=== PATIENT | female | born 1935 | race Caucasian/White ===

== ENCOUNTER 2022-06-04 08:46 | Emergency (ER) | payer MEDICARE, OTHER ==
[2022-06-04 09:09] VITALS: O2SAT 95
--- NOTE | 2022-06-04 09:30 | ERPHSYRPT ---
- History of Present Illness Source: patient Exam Limitations: no limitations Patient Subjective Stated Complaint: UTI symptoms Triage Nursing Assessment: Patient ambulated back to ED and transferred self to bed. Patient A+O X3. Patient's skin pink, warm and dry. Patient complains of UTI symptoms. Patient states she has been treated for UTI for 3 weeks, but continues to have pain when urinating. Patient complains of dysuria, urgency, frequency and hesitency. Physician History: 86 yo wf w dysuria [id number]. 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 She has frequency but denies urgency/hematuria/flank-CVA pain/N/V/D/melena/hematochezia/chest pain/cough. Pt became pain free after urinating. Timing/Duration: other (1 month) Quality: burning Onset Location: urethral Pain Radiation: none Severity of Pain-Max: severe Severity of Pain-Current: none Prior abdominal problems: none Sexual intercourse history: non-contributory Modifying Factors: Improves With: urinating (Makes worse) Associated Symptoms: dysuria, No abdominal pain, No fever, No chills, No diaphoresis, No nausea, No vomiting, No nocturia, No polyuria, No urinary frequency, No , No loss of bladder control, No lower back pain, No lumps, No mass, No swelling, No syncope Allergies/Adverse Reactions: No Known Drug Allergies Allergy (Unverified 06/04/22 09:03) Hx Influenza Vaccination/Date Given: No Hx Pneumococcal Vaccination/Date Given: No Travel Risk - International Travel Have you traveled outside of the country in past 3 weeks: No - Coronavirus Screening Are you exhibiting any of the following symptoms?: No - Vaccine Status Have you recieved a Covid-19 vaccination: Yes Certified Court/Medical Interpreter: Moderna - Vaccination Dates Date of 2cond Vaccination (if applicable): na - Review of Systems Constitutional: No Symptoms Eyes: No Symptoms Ears, Nose, & Throat: No Symptoms Respiratory: No Symptoms Cardiac: No Symptoms Abdominal/Gastrointestinal: No Symptoms Genitourinary Symptoms: No Symptoms, Dysuria Musculoskeletal: No Symptoms Skin: No Symptoms Neurological: No Symptoms Psychological: No Symptoms Endocrine: No Symptoms Hematologic/Lymphatic: No Symptoms Immunological/Allergic: No Symptoms - Past Medical History Neurological History: No Pertinent History Cardiac History: Arrhythmia, Hypertension Respiratory History: No Pertinent History Endocrine Medical History: No Pertinent History Musculoskeletal History: No Pertinent History Other Medical History: X-RAY SHOWED AN 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 - Social History Smoking Status: Never smoker Exposure to second hand smoke: No Drug Use: none Patient Lives Alone: Yes Significant Family History: no pertinent family hx - Nursing Vital Signs Nursing Vital Signs: Initial Vital Signs Temperature 97.1 F 06/04/22 09:04 Pulse Rate 66 06/04/22 09:04 Respiratory Rate 18 06/04/22 09:04 Blood Pressure 162/85 06/04/22 09:04 O2 Sat by Pulse Oximetry 95 06/04/22 09:04 Pain Scale Pain Intensity 8 - Physical Exam General Appearance: no apparent distress Eye Exam: PERRL/EOMI, eyes nml inspection Ears, Nose, Throat Exam: normal ENT inspection, TMs normal, pharynx normal, moist mucous membranes Neck Exam: normal inspection, non-tender, supple, full range of motion, No meningismus, No mass, No Brudzinski, No Kernig's Respiratory Exam: normal breath sounds, lungs clear, airway intact Cardiovascular Exam: regular rate/rhythm, normal heart sounds, normal peripheral pulses, capillary refill <2 sec, No murmur Gastrointestinal/Abdomen Exam: soft, normal bowel sounds, tenderness (Mild supra-pubic TTP) Back Exam: normal inspection, normal range of motion, No CVA tenderness, No vertebral tenderness Extremity Exam: normal inspection, normal range of motion Neurologic Exam: alert, oriented x 3, cooperative, director operating room II-XII nml as tested, normal mood/affect, nml cerebellar function, nml station & gait, sensation nml, No motor deficits, No sensory deficit Skin Exam: normal color, warm, dry Lymphatic Exam: No adenopathy SpO2 Interpretation: normal SpO2: 95 O2 Delivery: Room Air - Course Nursing assessment & vital signs reviewed: Yes Ordered Tests: Active Orders 24 hr Category Date Time Status CULTURE,URINE Stat Lab 06/04/22 09:04 Received UA W/RFX CULTURE Stat Lab 06/04/22 09:04 Completed Lab/Rad Data: Laboratory Results 06/04/22 Range/Units 09:04 Urinalys Dipstick Clnc MAIN LAB Urine Color YELLOW (YELLOW) Urine Appearance SLIGHTLY CLOUDY (CLEAR) Urine pH 6.0 (5-6) Ur Specific [place] 1.010 (1.005-1.025) POC Urine Protein Conf 30 (Negative) Urine Ketones NEGATIVE (NEGATIVE) Urine Nitrite NEGATIVE (NEGATIVE) Urine Bilirubin NEGATIVE (NEGATIVE) Urine Urobilinogen 0.2 (0-1) mg/dL Urine Leukocytes MODERATE (NEGATIVE) Urine WBC (Auto) >100 (0-5) /HPF Urine RBC (Auto) 6-10 (0-2) /HPF U Epithel Cells (Auto) NONE (FEW) /HPF Urine Bacteria (Auto) FEW (NEGATIVE) /HPF Urine RBC SMALL (0-5) Preston/ul Ur Culture Indicated? YES Urine Glucose NEGATIVE (NEGATIVE) mg/dL - Progress Progress Note: 06/04/22 10:07 Pt treated w Cipro 3-4 wks ago Counseled pt/family regarding: lab results, diagnosis, need for follow-up - Departure Departure Disposition: Home Clinical Impression: UTI (urinary tract infection) Condition: Stable Critical Care Time: No Referrals: DERIC CANDELARIA NP [Primary Care Provider] - Follow up/PCP as directed Instructions: Urinary Tract Infection, Adult (DC) Additional Instructions: Follow up with your family MD after antibiotics completed Start Bactrim twice a day for 5 days Fluids Return to ER for increasing pain or temperature greater than 100.5 Prescriptions: Smz/Tmp Ds Tablet [Bactrim Ds Tablet] 1 tab PO Q12H #10 tablet Phenazopyridine HCl 200 mg [Pyridium 200 mg] 200 mg PO TID PRN PRN #10 tablet PRN Reason: Pain
[2022-06-04 09:43] LABS: Appearance SLIGHTLY CLOUDY (CLEAR); Bacteria FEW /HPF (NEGATIVE); Bilirubin NEGATIVE (NEGATIVE); Dipstick done @ ? MAIN LAB; Glucose NEGATIVE (NEGATIVE); Ketones NEGATIVE (NEGATIVE); Nitrite NEGATIVE (NEGATIVE); Protein,Urine Dip 30 (Negative); RBC SMALL Ery/ul (0-5); Urobilinogen 0.2 mg/dL (0-1); WBC >100 /HPF (0-5)
[2022-06-04 09:44] LABS: Urine Cultured Indicated? YES
[2022-06-04 10:24] VITALS: BP 143/69; PULSE 69
== END 2022-06-04 10:21 | disposition home or self-care (01) ==
LOC: ED 08:46
DX: N39.0 Urinary tract infection, site not specified (principal); R30.0 Dysuria; R35.0 Frequency of micturition; I10 Essential (primary) hypertension
CPT/HCPCS: 81015; 87086; 99282

== ENCOUNTER 2023-09-23 09:51 | Emergency (ER) | payer MEDICARE, OTHER ==
--- NOTE | 2023-09-23 09:54 | ERPHSYRPT ---
- History of Present Illness Time Seen by Provider: 09/23/23 09:54 Source: patient, family Exam Limitations: no limitations Physician History: This is an 88-year-old white female patient of nurse practitioner Angelica who was sweeping off the snow on her sidewalk when she slipped on the ice that was underneath the snow. She injured her right ankle and there is pain in the lateral aspect of her right ankle. There is also some swelling in the level of the lower leg laterally. Patient is not on any anticoagulation therapy. She did not injure her head or neck or back. Patient was brought into the emergency department by the ambulance/paramedics. Patient has a history of arrhythmias, hypertension hyperlipidemia. Patient denies shortness of breath. Patient denies chest pain Occurred: just prior to arrival Reason for Fall: slipped (On ice) Injuries/Pain Location: lower extremity (Right ankle and right lower leg below the knee) Loss of Consciousness: no loss of consciousness Quality: aching Severity of Pain-Max: mild (To moderate) Severity of Pain-Current: mild (To moderate) Modifying Factors: Improves With: movement Associated Symptoms (Fall): extremity injury (. Right lower extremity below knee and right ankle), trouble walking (Her right ankle hurts to walk on it) Allergies/Adverse Reactions: No Known Drug Allergies Allergy (Unverified 06/04/22 09:03) Home Medications: Atorvastatin Calcium [Lipitor] 10 mg PO QHS 09/23/23 [History] Carvedilol 3.125 mg [Coreg 3.125 MG] 3.125 mg PO BID 09/23/23 [History] Enalapril Maleate 20 mg PO QAM 09/23/23 [History] Hydrochlorothiazide 25 mg [hydroDIURIL 25 MG] 25 mg PO DAILY 09/23/23 [History] Multivit-Min/Iron/Folic/Lutein [Centrum Silver Women Tablet] 1 each PO 09/23/23 [History] Vit A/Vit C/Vit E/Zinc/Copper [Preservision Areds Tablet] 09/23/23 [History] Vitamin B Complex [B Complex] 09/23/23 [History] Hx Influenza Vaccination/Date Given: No Hx Pneumococcal Vaccination/Date Given: No Travel Risk - International Travel Have you traveled outside of the country in past 3 weeks: No - Coronavirus Screening Are you exhibiting any of the following symptoms?: No Close contact with a COVID-19 positive Pt in past 14-21 Days: No - Vaccine Status Have you recieved a Covid-19 vaccination: Yes Lens Edger: Moderna - Vaccination Dates Date of 2cond Vaccination (if applicable): na - Review of Systems Constitutional: No Symptoms Eyes: No Symptoms Ears, Nose, & Throat: No Symptoms Respiratory: No Symptoms Cardiac: No Symptoms Abdominal/Gastrointestinal: No Symptoms Genitourinary Symptoms: No Symptoms Musculoskeletal: Fall, Injury (Right ankle and right lower extremity below the knee) Skin: No Symptoms Neurological: No Symptoms Psychological: No Symptoms Endocrine: No Symptoms Hematologic/Lymphatic: No Symptoms Immunological/Allergic: No Symptoms All Other Systems: Reviewed and Negative - Past Medical History Neurological History: No Pertinent History Cardiac History: Arrhythmia, Hypertension Respiratory History: No Pertinent History Endocrine Medical History: No Pertinent History Musculoskeletal History: No Pertinent History Other Medical History: X-RAY SHOWED AN 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 - Social History Smoking Status: Never smoker Exposure to second hand smoke: No Drug Use: none Patient Lives Alone: Yes Significant Family History: no pertinent family hx - Nursing Vital Signs Nursing Vital Signs: Initial Vital Signs Pulse Rate 50 L 09/23/23 09:53 Respiratory Rate 16 09/23/23 09:53 Blood Pressure 170/101 09/23/23 09:53 O2 Sat by Pulse Oximetry 98 09/23/23 09:53 Pain Scale Pain Intensity 5 - Jeniffer Coma Score Best Eye Response ([place]): (4) open spontaneously Best Verbal Response ([place]): (5) oriented Best Motor Response ([place]): (6) obeys commands [place] Total: 15 - Physical Exam General Appearance: no apparent distress, alert, anxiety Head Injury: no evidence of injury Eye Exam: PERRL/EOMI, eyes nml inspection ENT Exam: airway nml, nml ext.inspection Neck Exam: supple, trachea midline, full range of motion, normal alignment, normal inspection Respiratory/Chest Exam: normal breath sounds, No chest tenderness, No respiratory distress, No ecchymosis, No crepitus Gastrointestinal Exam: No tenderness Rectal Exam: not done Back Exam: normal inspection, normal range of motion, No CVA tenderness, No vertebral tenderness Extremity Exam: evidence of injury (Swelling and tenderness and swelling lateral aspect of right ankle and lateral aspect of right lower leg below the knee), tenderness Neurologic Exam: alert, oriented x 3, cooperative, motel operator II-XII nml as tested, normal mood/affect, sensation nml Skin Exam: normal color, warm, dry SpO2 Interpretation: normal O2 Delivery: Room Air - Course Nursing assessment & vital signs reviewed: Yes Ordered Tests: Active Orders 24 hr Category Date Time Status Splint STAT Care 09/23/23 10:26 Active ANKLE (3 VIEWS) Stat Exams 09/23/23 10:05 Taken LOWER LEG Stat Exams 09/23/23 10:09 Taken - Progress Progress: improved, pain not gone completely, re-examined Progress Note: 09/23/23 10:13 This patient's medical issue is 1 of low complexity. Level complexity in the workup performed is based on review the patient's past medical history, review the patient's medication list, review of the patient's drug allergy list, history of present illness and physical findings on examination. This patient's workup includes x-ray of the patient's right ankle and x-ray of the patient's right lower leg below the knee. 09/23/23 10:27 I interpreted the x-ray of the right lower leg. There is distal, minimally displaced fibular fracture. Remainder of the x-ray shows no other acute fracture or dislocation. I interpreted the x-ray of the right ankle. There is minimally displaced fibular fracture. Remainder of the x-ray shows no other acute fracture or dislocation. Counseled pt/family regarding: diagnosis, need for follow-up, rad results Medical Desision Making - Diagnostic Testing Diagnostic test were ordered, analyzed, and reviewed by me: Yes Radiological Interpretation: Interpreted by me - Risk of complications The pt has a mod risk of morbidity or mortality based on: Need for prescription drug management - Departure Departure Disposition: Home Clinical Impression: Fracture of distal end of fibula Condition: Stable Critical Care Time: No Referrals: DERIC CANDELARIA NP [Primary Care Provider] - Follow up/PCP as directed Additional Instructions: Minimize weightbearing with splint in place using a walker. Take your medicat ion as prescribed. Follow-up in the [facility] orthopedic clinic or floor sander Dr. Torres's office at [facility] for further evaluation management. The [facility] orthopedic clinic is open next week Tuesday through Tuesday 8 AM to 10 AM. It is a walk-in clinic and you do not need to have an appointment. You can call Dr. Torres's office at [facility] and make a follow-up appointment with them for early next week for further evaluation and management. Prescriptions: Oxycodone HCl/Acetaminophen [Percocet 5-325 mg Tablet] 1 each PO Q8H PRN PRN #9 tablet MDD 3 PRN Reason: Moderate To Severe Pain
[2023-09-23 10:02] VITALS: PULSE 50; RESP 16
[2023-09-23 10:29] VITALS: BP 166/69; O2SAT 94
--- NOTE | 2023-09-23 10:56 | XRAY ---
Indication: Pain following fall. Comparison: None 2 view right lower leg demonstrates osteopenia and faint minimal vascular calcifications. Nondisplaced oblique fracture distal fibula with adjacent soft tissue swelling. No other bony, articular, or soft tissue abnormalities.
--- NOTE | 2023-09-23 10:56 | XRAY ---
Indication: Pain following fall. Comparison: None 3 view right ankle demonstrates osteopenia and acute nondisplaced oblique fracture distal fibula with adjacent soft tissue swelling. Incidental mild scattered vascular calcifications, small heel spurs, and tiny posterior talus accessory ossicles. No other bony, articular, or soft tissue abnormalities.
== END 2023-09-23 11:30 | disposition home or self-care (01) ==
LOC: ED 09:51
DX: S82.831A Other fracture of upper and lower end of right fibula, initial encounter for closed fracture (principal); W00.0XXA Fall on same level due to ice and snow, initial encounter; Y93.H9 Activity, other involving exterior property and land maintenance, building and construction; Y92.007 Garden or yard of unspecified non-institutional (private) residence as the place of occurrence of the external cause; I10 Essential (primary) hypertension; E78.5 Hyperlipidemia, unspecified; Z79.891 Long term (current) use of opiate analgesic; Z79.899 Other long term (current) drug therapy
CPT/HCPCS: 29505; 73590; 73610; 99282

== ENCOUNTER 2024-04-17 14:03 | Inpatient (IN) | payer MEDICARE, OTHER ==
--- NOTE | 2024-04-17 15:31 | XRAY ---
Indication: Left hip pain 1 month. No known injury. Axial and coronal MRI both hips performed using T1, T2, and STIR sequences. Additional T2 fat sat sagittal images obtained through left hip. Comparison: None Both hip articulation intact. Left femur head/neck demonstrates nondisplaced hairline stress fracture with patchy bone edema signal and small effusion. Superior left acetabulum also demonstrates small focus bone bruising/edema signal presumed related. No bony remodeling or evidence for avascular necrosis. No focal solid/cystic soft tissue mass. Visualized pelvic contents are unremarkable. Impression: Stress fracture left femur head/neck with small effusion. Additional associated superior acetabulum bone bruising/edema. Comment: Immediate report will be given to the ordering clinician.
--- NOTE | 2024-04-17 16:30 | PCM.HP ---
History of Present Illness - Chief Complaint Chief Complaint: Stress fracture left femur head/neck with small effusion. Date: 04/17/24 History of Present Illness: is a 88 year old female with a PMHX of HLD and HTN patient of Dr. Lei (Ortho) direct admit for evaluation and treatment of MRI confirmed stress fracture left femur head/neck with small effusion. Patient states that she has been experiencing left groin and hip pain for the past month. Pain is aching in characteristic and only occurs with movement. She rates that pain 10/10 on a numerical pain scale when it occurs. Movement is the only aggravating factor. Pain is relieved with sitting or laying. No previous trauma. Plan per Ortho is to obtain CT and plan for surgical intervention either Tuesday/. Denies fever,cough, sob, cp, abdominal pain, ALMANZA, dizziness, N/V/D. - Review of Systems Constitutional: No Symptoms Eyes: No Symptoms Ears, Nose, & Throat: No Symptoms Respiratory: No Symptoms Cardiac: No Symptoms Abdominal/Gastrointestinal: No Symptoms Genitourinary Symptoms: No Symptoms Musculoskeletal: Joint Pain (Left groin/hip) Skin: No Symptoms Neurological: No Symptoms Psychological: No Symptoms Endocrine: No Symptoms Hematologic/Lymphatic: No Symptoms Immunological/Allergic: No Symptoms Medications & Allergies Home Medications: Home Medication List Phenazopyridine HCl 200 mg [Pyridium 200 mg] 200 mg PO TID PRN PRN #10 tablet 06/04/22 [Rx] Atorvastatin Calcium [Lipitor] 10 mg PO QHS 09/23/23 [History Confirmed 09/23/23] Carvedilol 3.125 mg [Coreg 3.125 MG] 3.125 mg PO BID 09/23/23 [History Confirmed 09/23/23] Enalapril Maleate 20 mg PO QAM 09/23/23 [History Confirmed 09/23/23] Hydrochlorothiazide 25 mg [hydroDIURIL 25 MG] 25 mg PO DAILY 09/23/23 [History Confirmed 09/23/23] Multivit-Min/Iron/Folic/Lutein [Centrum Silver Women Tablet] 1 each PO 09/23/23 [History] Oxycodone HCl/Acetaminophen [Percocet 5-325 mg Tablet] 1 each PO Q8H PRN PRN #9 tablet MDD 3 09/23/23 [Rx] Vit A/Vit C/Vit E/Zinc/Copper [Preservision Areds Tablet] 09/23/23 [History] Vitamin B Complex [B Complex] 09/23/23 [History] Allergies/Adverse Reactions: Allergies Allergy/AdvReac Type Severity Reaction Status Date / Time No Known Drug Allergies Allergy Unverified 06/04/22 09:03 - Past Medical History Neurological History: Peripheral Neuropathy Cardiac History: Hypertension Respiratory History: No Pertinent History Endocrine Medical History: No Pertinent History Musculoskelatal History: Osteoarthritis History: Other (melanoma) Comment: X-RAY SHOWED AN 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 Significant Family History: no pertinent family hx - Social History Smoking Status: Former smoker Exposure to second hand smoke: No Alcohol: None Drug Use: none - Physical Exam General Appearance: no apparent distress Neurologic Exam: alert, oriented x 3, cooperative Eye Exam: PERRL/EOMI Ears, Nose, Throat Exam: normal ENT inspection Neck Exam: normal inspection Respiratory Exam: normal breath sounds, lungs clear Cardiovascular Exam: regular rate/rhythm, normal heart sounds Pelvic Exam: not done Rectal Exam: deferred Back Exam: normal inspection Extremity Exam: limited range of motion (right hip) Results - Radiology Impressions Radiology Exams & Impressions: Radiology Procedures Category Date Time Status MRI LOW EXT JOINT W/O CONTRAST [MRI] Routine Exams 04/17/24 14:12 Completed Assessment/Plan (1) Stress fracture of femur Current Visit: Yes Status: Acute Assessment & Plan: MRI reviewed: Impression: Stress fracture left femur head/neck with small effusion. Additional associated superior acetabulum bone bruising/edema. -Discussed case with Dr. Lei, plan for additional imaging to determine surgical treatment plan- Most likely Tuesday/ pending results -CMP, CBC, PT, PTT -Pain control - [place] Code(s): M84.353A - STRESS FRACTURE, UNSPECIFIED FEMUR, INIT ENCNTR FOR FRACTURE (2) HTN (hypertension) Current Visit: Yes Status: Acute Assessment & Plan: -Monitor - continue home meds Code(s): I10 - ESSENTIAL (PRIMARY) HYPERTENSION (3) HLD (hyperlipidemia) Current Visit: Yes Status: Acute Assessment & Plan: -continue statin VTE: bilateral SCD - hold anticoag for sx Dispo: pending surgical eval Code(s): E78.5 - HYPERLIPIDEMIA, UNSPECIFIED Telemedicine Encounter - Telemedicine Encounter Telemedicine Encounter: "The entirety of this encounter was performed via Telemedicine" This visit was performed using real-time audio and video connection between my location and thepatients locationwith the assistance of a surrogateat the patients location. Written or verbal consent was obtained from the patient/guardian to perform this visit [facility] technology. Any patient questions regarding the telemedicine interaction were answered.
[2024-04-17] MEDS ORDERED: TYLENOL 325 MG PO PRN (17:05)
[2024-04-17 17:30] LABS: Absolute Neutrophil Ct (ANC) 3.95 x10^3/uL (1.56-6.13); BASOPHIL % 0.5 % (0.1-1.2); Basophil (Absolute #) 0.04 x10^3/uL (0.01-0.08); Eosinophil % 2.8 % (0.7-5.8); Eosinophil (Absolute #) 0.21 x10^3/uL (0.04-0.36); Hematocrit 39.4 % (34.1-44.9); Hemoglobin 13.4 g/dL (11.2-15.7); IMMATURE GRAN # 0.02 x10^3u/L (0.001-0.031); IMMATURE GRAN % 0.3 % (0.001-0.429); Lymphocyte (Absolute #) 2.51 x10^3/uL (1.18-3.74); Mean Platelet Volume 9.2 fL (9.4-12.3); Monocyte (Absolute #) 0.66 x10^3/uL (0.24-0.86); Monocytes % 8.9 % (4.7-12.5); Neutrophil % 53.5 % (34.0-71.1); Platelet Count 212 x10^3/uL (182-369); Red Blood Count 4.19 x10^6/uL (3.93-5.22); Red Cell Distribution Width 13.1 % (11.7-14.4); White Blood Count 7.4 x10^3/uL (3.98-10.04)
[2024-04-17 17:43] LABS: ALBUMIN 4.4 g/dL (3.5-5.0); ANION GAP 11.5 MEQ/L (5-15); BILIRUBIN,TOTAL 0.9 mg/dL (0.2-1.3); Calcium 9.5 mg/dL (8.4-10.2); Creatinine 1 0.7 mg/dL (0.52-1.04); EST GLOMERULAR FILTRATION RATE 83.7 ML/MIN; Potassium 3.5 mmol/L (3.5-5.1); Total Protein 7.1 g/dL (6.3-8.2)
[2024-04-17 17:45] LABS: INR 0.99 (0.8-3.0); PROTIME 10.8 SECONDS (9.4-12.5); PTT 28.2 SECONDS (25.1-36.5)
[2024-04-17] MEDS ORDERED: DICLOFENAC SODIUM TP ONE (20:39)
[2024-04-17] MEDS: DICLOFENAC SODIUM TP PRN (20:40)
[2024-04-17] MEDS: ZOLOFT 50 MG TABLET PO SCH (21:34)
[2024-04-17] MEDS: Zocor 10MG PO SCH (21:35)
[2024-04-17] MEDS: Vasotec 10 MG PO SCH (21:41)
[2024-04-17] MEDS ORDERED: NON-FORMULARY ITEM (Atorvastatin Calcium 10 MG Tablet) PO SCH (22:00)
[2024-04-18] MEDS: Coreg 3.125 MG PO SCH (00:22)
[2024-04-18 04:54] LABS: Absolute Neutrophil Ct (ANC) 2.82 x10^3/uL (1.56-6.13); BASOPHIL % 0.5 % (0.1-1.2); Basophil (Absolute #) 0.03 x10^3/uL (0.01-0.08); Eosinophil % 3.3 % (0.7-5.8); Hemoglobin 12.4 g/dL (11.2-15.7); IMMATURE GRAN # 0.02 x10^3u/L (0.001-0.031); IMMATURE GRAN % 0.3 % (0.001-0.429); Lymphocyte (Absolute #) 2.33 x10^3/uL (1.18-3.74); Lymphocytes % 38.1 % (19.3-51.7); Mean Cell Volume 94.1 fL (79.4-94.8); Mean Corpuscular Hemoglobin 31.6 pg (25.6-32.2); Mean Corpuscular Hgb Concent. 33.5 g/dL (32.2-35.5); Mean Platelet Volume 9.8 fL (9.4-12.3); Monocyte (Absolute #) 0.72 x10^3/uL (0.24-0.86); Monocytes % 11.8 % (4.7-12.5); Platelet Count 210 x10^3/uL (182-369); Red Blood Count 3.93 x10^6/uL (3.93-5.22); White Blood Count 6.1 x10^3/uL (3.98-10.04)
[2024-04-18 05:06] LABS: ALBUMIN 3.9 g/dL (3.5-5.0); ANION GAP 10.4 MEQ/L (5-15); BILIRUBIN,TOTAL 0.8 mg/dL (0.2-1.3); Creatinine 1 0.68 mg/dL (0.52-1.04); EST GLOMERULAR FILTRATION RATE 84.2 ML/MIN; Potassium 3.4 mmol/L (3.5-5.1); Total Protein 6.4 g/dL (6.3-8.2)
--- NOTE | 2024-04-18 05:25 | PCM.NOTE ---
Date and Time: 04/18/24523 Subjective Assessment: is a 88 year old female with a PMHX of HLD and HTN patient of Dr. Lei (Ortho) direct admit for evaluation and treatment of MRI confirmed stress fracture left femur head/neck with small effusion. Patient states that she has been experiencing left groin and hip pain for the past month. Pain is aching in characteristic and only occurs with movement. She rates that pain 10/10 on a numerical pain scale when it occurs. Movement is the only aggravating factor. Pain is relieved with sitting or laying. No previous trauma. Plan per Ortho is to obtain CT and plan for surgical intervention either Tuesday/. Denies fever,cough, sob, cp, abdominal pain, ALMANZA, dizziness, N/V/D. 04/18/24: Met with patient and family at bedside. Reviewed imaging results with addendum. Plans for total left hip replacement today per Ortho. Pain is controlled with current management. Will order CXR for pre-surgical evaluation. Denies fever,cough, sob, cp, abdominal pain, ALMANZA, dizziness, N/V/D. - Review of Systems Constitutional: No Symptoms Eyes: No Symptoms Ears, Nose, & Throat: No Symptoms Respiratory: No Symptoms Cardiac: No Symptoms Abdominal/Gastrointestinal: No Symptoms Genitourinary Symptoms: No Symptoms Musculoskeletal: Joint Pain (left hip/groin) Skin: No Symptoms Neurological: No Symptoms Psychological: No Symptoms Endocrine: No Symptoms Hematologic/Lymphatic: No Symptoms Immunological/Allergic: No Symptoms Objective Exam General Appearance: no apparent distress Neurologic Exam: alert, oriented x 3, cooperative Skin Exam: normal color Eye Exam: PERRL Ears, Nose, Throat Exam: normal ENT inspection Neck Exam: normal inspection Respiratory Exam: normal breath sounds, lungs clear Cardiovascular Exam: regular rate/rhythm, normal heart sounds Gastrointestinal/Abdomen Exam: soft, normal bowel sounds Extremity Exam: limited range of motion (LLE/hip) Back Exam: normal inspection Pelvic Exam: deferred Rectal Exam: deferred Objective Data Vital Signs: Vital Signs - 24 hr Temp Pulse Resp BP BP Pulse Ox 04/18/24 04:00 97.8 F 51 L 18 179/76 95 04/17/24 23:51 97.5 F 54 L 16 144/67 94 L 04/17/24 20:08 97.8 F 54 L 17 160/72 92 L 04/17/24 17:39 97.1 F 51 L 19 168/79 95 04/17/24 16:30 97.1 F 51 L 19 95 Pain Assessment - Last Documented Pain Intensity 0 Intake and Output: Intake & Output 04/15/24 04/16/24 04/17/24 04/18/24 11:59 11:59 11:59 11:59 Intake Total 720 Output Total 1000 Balance -280 Weight 75.5 kg Lab Results: Lab Results-Last 24 Hours 04/17/24 04/17/24 04/17/24 Range/Units 17:25 17:25 17:25 WBC 7.4 (3.98-10.04) x10^3/uL RBC 4.19 (3.93-5.22) x10^6/uL Hgb 13.4 (11.2-15.7) g/dL Hct 39.4 (34.1-44.9) % MCV 94.0 (79.4-94.8) fL MCH 32.0 (25.6-32.2) pg MCHC 34.0 (32.2-35.5) g/dL RDW 13.1 (11.7-14.4) % Plt Count 212 (182-369) x10^3/uL MPV 9.2 L (9.4-12.3) fL Gran % 53.5 (34.0-71.1) % Immature Gran % (Auto) 0.3 (0.001-0.429) % Nucleat RBC Rel Count 0.0 (0.00-0.2) % Eos # (Auto) 0.21 (0.04-0.36) x10^3/uL Immature Gran # (Auto) 0.02 (0.001-0.031) x10^3u/L Absolute Lymphs (auto) 2.51 (1.18-3.74) x10^3/uL Absolute Monos (auto) 0.66 (0.24-0.86) x10^3/uL Absolute Nucleated RBC 0.00 (0.00-0.012) x10^3u/L Lymphocytes % 34.0 (19.3-51.7) % Monocytes % 8.9 (4.7-12.5) % Eosinophils % 2.8 (0.7-5.8) % Basophils % 0.5 (0.1-1.2) % Absolute Granulocytes 3.95 (1.56-6.13) x10^3/uL Basophils # 0.04 (0.01-0.08) x10^3/uL PT 10.8 (9.4-12.5) SECONDS INR 0.99 (0.8-3.0) APTT 28.2 (25.1-36.5) SECONDS Sodium 138 (135-145) mmol/L Potassium 3.5 (3.5-5.1) mmol/L Chloride 102 (98-107) mmol/L Carbon Dioxide 29 (22-30) mmol/L Anion Gap 11.5 (5-15) MEQ/L BUN 21 H (7-17) mg/dL Creatinine 0.70 (0.52-1.04) mg/dL Estimated GFR 83.7 ML/MIN Glucose 118 H (74-106) mg/dL Calcium 9.5 (8.4-10.2) mg/dL Total Bilirubin 0.90 (0.2-1.3) mg/dL AST 39 H (14-36) U/L ALT 37 H (0-35) U/L Alkaline Phosphatase 87 (38-126) U/L Serum Total Protein 7.1 (6.3-8.2) g/dL Albumin 4.4 (3.5-5.0) g/dL 04/18/ Range/Units 04:05 WBC 6.1 (3.98-10.04) x10^3/uL RBC 3.93 (3.93-5.22) x10^6/uL Hgb 12.4 (11.2-15.7) g/dL Hct 37.0 (34.1-44.9) % MCV 94.1 (79.4-94.8) fL MCH 31.6 (25.6-32.2) pg MCHC 33.5 (32.2-35.5) g/dL RDW 13.0 (11.7-14.4) % Plt Count 210 (182-369) x10^3/uL MPV 9.8 (9.4-12.3) fL Gran % 46.0 (34.0-71.1) % Immature Gran % (Auto) 0.3 (0.001-0.429) % Nucleat RBC Rel Count 0.0 (0.00-0.2) % Eos # (Auto) 0.20 (0.04-0.36) x10^3/uL Immature Gran # (Auto) 0.02 (0.001-0.031) x10^3u/L Absolute Lymphs (auto) 2.33 (1.18-3.74) x10^3/uL Absolute Monos (auto) 0.72 (0.24-0.86) x10^3/uL Absolute Nucleated RBC 0.00 (0.00-0.012) x10^3u/L Lymphocytes % 38.1 (19.3-51.7) % Monocytes % 11.8 (4.7-12.5) % Eosinophils % 3.3 (0.7-5.8) % Basophils % 0.5 (0.1-1.2) % Absolute Granulocytes 2.82 (1.56-6.13) x10^3/uL Basophils # 0.03 (0.01-0.08) x10^3/uL PT (9.4-12.5) SECONDS INR (0.8-3.0) APTT (25.1-36.5) SECONDS Sodium (135-145) mmol/L Potassium (3.5-5.1) mmol/L Chloride (98-107) mmol/L Carbon Dioxide (22-30) mmol/L Anion Gap (5-15) MEQ/L BUN (7-17) mg/dL Creatinine (0.52-1.04) mg/dL Estimated GFR ML/MIN Glucose (74-106) mg/dL Calcium (8.4-10.2) mg/dL Total Bilirubin (0.2-1.3) mg/dL AST (14-36) U/L ALT (0-35) U/L Alkaline Phosphatase (38-126) U/L Serum Total Protein (6.3-8.2) g/dL Albumin (3.5-5.0) g/dL Radiology Exams: Radiology Procedures Category Date Time Status LOWER EXTREMITY WO CONTRAST [CT] Urgent Exams 04/17/24 17:25 Taken MRI LOW EXT JOINT W/O CONTRAST [MRI] Routine Exams 04/17/24 14:12 Completed Assessment/Plan (1) Stress fracture of femur Current Visit: Yes Status: Acute Assessment & Plan: MRI reviewed: Impression: Stress fracture left femur head/neck with small effusion. Additional associated superior acetabulum bone bruising/edema. -Discussed case with Dr. Lei, plan for additional imaging to determine surgical treatment plan- Most likely Tuesday/ pending results -CMP, CBC, PT, PTT -Pain control - [place] 04/18/24: -Ortho following plan for left total hip replacement -Continue pain control -CXR - pre surgery Code(s): M84.353A - STRESS FRACTURE, UNSPECIFIED FEMUR, INIT ENCNTR FOR FRACTURE (2) HTN (hypertension) Current Visit: Yes Status: Acute Assessment & Plan: -Monitor - continue home meds Code(s): I10 - ESSENTIAL (PRIMARY) HYPERTENSION (3) HLD (hyperlipidemia) Current Visit: Yes Status: Acute Assessment & Plan: -continue statin VTE: bilateral SCD - hold anticoag for sx Dispo: pending surgical eval Code(s): M84.353A - STRESS FRACTURE, UNSPECIFIED FEMUR, INIT ENCNTR FOR FRACTURE (2) HTN (hypertension) Current Visit: Yes Status: Acute Code(s): I10 - ESSENTIAL (PRIMARY) HYPERTENSION (3) HLD (hyperlipidemia) Current Visit: Yes Status: Acute Code(s): E78.5 - HYPERLIPIDEMIA, UNSPECIFIED
--- NOTE | 2024-04-18 08:40 | XRAY ---
Indication: Closed fracture of hip. Multiple contiguous axial images obtained through the left hip. 2-D sagittal and coronal reformatted images obtained. Additional 3-D reformatted images obtained using separate workstation. Comparison: Same day MRI left hip exam. Osseous structures demineralized consistent with patient's age. Left hip articular joint intact with mild weightbearing degenerative joint space narrowing, bony spurring, and small effusion. No acute fracture, suspicious bony lesions, or osseous destructive process. Specifically no CT features corresponding to the MRI stress fracture I reported. Incidental mild degenerative changes left SI joint. Visualized noncontrasted soft tissues demonstrates mild scattered arteriosclerotic calcifications. No focal solid/cystic soft tissue mass or pathologic lymphadenopathy. Impression: Osteopenia, mild left hip/left SI joint degenerative changes, and arteriosclerotic disease. Remaining CT left hip without contrast exam is negative. Comment: Study was reviewed with the ordering clinician at 0830 hrs on April 18, 2024.
[2024-04-18] MEDS: Ocuvite Tablet PO SCH (09:46)
[2024-04-18] MEDS: VITA-BEE WITH C PO SCH (09:46)
[2024-04-18] MEDS: Klor Con PO SCH (09:46)
[2024-04-18] MEDS: THERAGRAN MULTIVITAMIN PO SCH (09:47)
[2024-04-18] MEDS: hydroDIURIL 25 MG PO SCH (09:53)
[2024-04-18] MEDS ORDERED: NON-FORMULARY ITEM (Vit A/Vit C/Vit E/Zinc/Copper [Preservision Areds Tablet] 1 EACH Table PO SCH (10:00)
[2024-04-18] MEDS ORDERED: Klor Con PO SCH (10:00)
[2024-04-18] MEDS ORDERED: VITAMIN B COMPLEX PO SCH (10:00)
[2024-04-18] MEDS ORDERED: NON-FORMULARY ITEM (Multivit-Min/Iron/Folic/Lutein [Centrum Silver Women Tablet] 1 EACH Ta PO SCH (10:00)
[2024-04-18] MEDS ORDERED: Lactated Ringers 1,000 ML IV ONE ×2 (10:30→13:00)
--- NOTE | 2024-04-18 10:32 | XRAY ---
Indication: Preop exam. Comparison: July 20, 2021 Portable chest again demonstrates minimal left lung base discoid atelectasis/scarring. No focal infiltrate, consolidation, or large effusion. Heart not enlarged again with mild tortuous descending aorta. Bony thorax intact again with osteopenia, degenerative changes, and mild levoscoliosis. New finding old left 7-9 rib fractures. Impression: Nonacute chest with chronic features.
[2024-04-18] MEDS: Lactated Ringers 1,000 ML IV SCH (11:02)
[2024-04-18] MEDS ORDERED: Marcaine 0.5%/Epinephrine 10 ML ONE (12:25)
[2024-04-18] MEDS ORDERED: SUBLIMAZE 100 MCG/2 ML ONE ×3 (12:26→16:28)
[2024-04-18] MEDS ORDERED: EXPAREL 133 MG/10 ML VIAL IJ ONE (13:36)
[2024-04-18] MEDS ORDERED: MARCAINE 0.5%-EPI 1:200,000 VL IJ ONE (13:36)
[2024-04-18] MEDS ORDERED: Sodium Chloride 0.9% 100 ML ONE (13:37)
[2024-04-18] MEDS ORDERED: Versed 2 MG/2 ML Injection ONE (13:44)
[2024-04-18] MEDS ORDERED: Amidate 20 MG/10 ML IV ONE (13:44)
[2024-04-18] MEDS ORDERED: ROCURONIUM BROMIDE IV ONE (13:44)
[2024-04-18] MEDS ORDERED: CEFAZOLIN 2 GM/100 ML NaCl 2 GM/100 ML IVPB IV ONE (14:00)
[2024-04-18] MEDS ORDERED: TRANEXAMIC ACID 1000 MG/10 ML ONE (14:01)
[2024-04-18] MEDS ORDERED: ROBINUL ONE (14:52)
--- NOTE | 2024-04-18 15:18 | XRAY ---
Indication: Follow-up left hip total replacement. Comparison: March 23, 2024 Single AP pelvis demonstrates new left hip arthroplasty with left femoral prosthesis in situ, overlying postsurgical soft tissue emphysema, and external hemostats/clips. Again osteopenia and mild scattered vascular calcifications. No other bony, articular, or soft tissue abnormalities.
[2024-04-18] MEDS ORDERED: Zofran 4 MG/2 ML VIAL ONE (15:40)
[2024-04-18] MEDS ORDERED: BRIDION 200MG/2ML IV ONE (15:44)
--- NOTE | 2024-04-18 16:46 | XRAY ---
Indication: Postop left total hip replacement. Comparison: Taken earlier today. AP pelvis and crosstable lateral left hip demonstrates new intact left hip bipolar prosthesis with trochanteric wire. Again postsurgical soft tissue emphysema and diffuse osteopenia. No other bony, articular, or soft tissue abnormalities.
[2024-04-18] MEDS: NORCO 5/325 MG PO PRN (17:55)
[2024-04-18] MEDS: POTASSIUM CHLORIDE IV ONE (18:43)
[2024-04-18] MEDS: SODIUM CHLORIDE 0.9% IV ONE (18:43)
[2024-04-18] MEDS: Zofran 4 MG/2 ML VIAL IV PRN (22:59)
--- NOTE | 2024-04-19 05:13 | PCM.NOTE ---
Date and Time: 04/19/24511 Subjective Assessment: is a 88 year old female with a PMHX of HLD and HTN patient of Dr. Lei (Ortho) direct admit for evaluation and treatment of MRI confirmed stress fracture left femur head/neck with small effusion. Patient states that she has been experiencing left groin and hip pain for the past month. Pain is aching in characteristic and only occurs with movement. She rates that pain 10/10 on a numerical pain scale when it occurs. Movement is the only aggravating factor. Pain is relieved with sitting or laying. No previous trauma. Plan per Ortho is to obtain CT and plan for surgical intervention either Tuesday/. Denies fever,cough, sob, cp, abdominal pain, ALMANZA, dizziness, N/V/D. 04/18/24: Met with patient and family at bedside. Reviewed imaging results with addendum. Plans for total left hip replacement today per Ortho. Pain is controlled with current management. Will order CXR for pre-surgical evaluation. Denies fever,cough, sob, cp, abdominal pain, ALMANZA, dizziness, N/V/D. 04/19/24: Met with patient at bedside. PODS#1. Endorses 7/10 pain to the left hip. [place] not relieving pain - will add dilaudid. She reports vomiting last night and nausea this morning. CM working on placement/swing. Denies fever,cough, sob, cp, abdominal pain, ALMANZA, dizziness, or diarrhea. - Review of Systems Constitutional: Fatigue, Weakness Eyes: No Symptoms Ears, Nose, & Throat: No Symptoms Respiratory: No Symptoms Cardiac: No Symptoms Abdominal/Gastrointestinal: Nausea, Vomiting Genitourinary Symptoms: No Symptoms Musculoskeletal: Joint Pain (left hip) Skin: Other (surgical wound to left hip covered with dressing) Neurological: No Symptoms Psychological: No Symptoms Endocrine: No Symptoms Hematologic/Lymphatic: No Symptoms Immunological/Allergic: No Symptoms Objective Exam General Appearance: no apparent distress Neurologic Exam: alert, oriented x 3, cooperative Skin Exam: normal color, other (surgical wound to left hip covered with dressing) Eye Exam: PERRL Ears, Nose, Throat Exam: normal ENT inspection Neck Exam: normal inspection Respiratory Exam: normal breath sounds, lungs clear Cardiovascular Exam: regular rate/rhythm, normal heart sounds Gastrointestinal/Abdomen Exam: soft, normal bowel sounds Extremity Exam: normal inspection Back Exam: normal inspection Pelvic Exam: deferred Rectal Exam: deferred Objective Data Vital Signs: Vital Signs - 24 hr Temp Pulse Resp BP BP Pulse Ox 04/19/24 03:59 98.9 F 68 17 136/65 160/72 96 04/19/24 00:09 97.7 F 68 19 159/71 95 04/18/24 21:10 97.6 F 57 L 15 148/65 93 L 04/18/24 20:19 97.0 F 55 L 17 131/60 93 L 04/18/24 19:10 97.0 F 52 L 18 137/63 93 L 04/18/24 18:40 96.8 F 51 L 17 145/63 94 L 04/18/24 18:27 59 L 154/82 04/18/24 17:55 59 L 148/68 04/18/24 17:40 96.5 F 53 L 16 148/67 97 04/18/24 12:28 96.4 F 54 L 16 171/72 160/72 93 L 04/18/24 11:59 96.4 F 54 L 16 171/72 93 L 04/18/24 07:20 97.0 F 53 L 16 163/73 94 L Pain Assessment - Last Documented Pain Intensity 8 Pain Scale Used 0-10 Pain Scale Intake and Output: Intake & Output 04/16/24 04/17/24 04/18/24 04/19/24 11:59 11:59 11:59 11:59 Intake Total 720 1480 Output Total 1200 Balance -480 1480 Weight 75.5 kg 75.5 kg Lab Results: Lab Results-Last 24 Hours 04/18/24 Range/Units 04:05 Sodium 138 (135-145) mmol/L Potassium 3.4 L (3.5-5.1) mmol/L Chloride 104 (98-107) mmol/L Carbon Dioxide 27 (22-30) mmol/L Anion Gap 10.4 (5-15) MEQ/L BUN 17 (7-17) mg/dL Creatinine 0.68 (0.52-1.04) mg/dL Estimated GFR 84.2 ML/MIN Glucose 105 (74-106) mg/dL Calcium 9.0 (8.4-10.2) mg/dL Total Bilirubin 0.80 (0.2-1.3) mg/dL AST 34 (14-36) U/L ALT 35 (0-35) U/L Alkaline Phosphatase 80 (38-126) U/L Serum Total Protein 6.4 (6.3-8.2) g/dL Albumin 3.9 (3.5-5.0) g/dL Radiology Exams: Radiology Procedures Category Date Time Status CHEST 1 VIEW (PORTABLE) Stat Exams 04/18/24 09:54 Completed HIP (1V) INCL PEL IF DONE Routine Exams 04/18/24 16:13 Completed LOWER EXTREMITY WO CONTRAST [CT] Urgent Exams 04/17/24 17:25 Completed MRI LOW EXT JOINT W/O CONTRAST [MRI] Routine Exams 04/17/24 14:12 Completed PELVIS (1 OR 2 VIEWS) Routine Exams 04/18/24 15:06 Completed Assessment/Plan (1) Stress fracture of femur Current Visit: Yes Status: Acute Assessment & Plan: MRI reviewed: Impression: Stress fracture left femur head/neck with small effusion. Additional associated superior acetabulum bone bruising/edema. -Discussed case with Dr. Lei, plan for additional imaging to determine surgical treatment plan- Most likely Tuesday/ pending results -CMP, CBC, PT, PTT -Pain control - [place] 04/18/24: -Ortho following plan for left total hip replacement -Continue pain control -CXR - pre surgery 04/19: -PODS#1 -ortho following -Continue pain management - add breakthrough meds - diluadid -CM working on rehab vs swing Code(s): M84.353A - STRESS FRACTURE, UNSPECIFIED FEMUR, INIT ENCNTR FOR FRACTURE (2) HTN (hypertension) Current Visit: Yes Status: Acute Assessment & Plan: -Stable, continue to Monitor - continue home meds Code(s): I10 - ESSENTIAL (PRIMARY) HYPERTENSION (3) HLD (hyperlipidemia) Current Visit: Yes Status: Acute Assessment & Plan: -continue statin VTE: bilateral SCD - hold anticoag for sx Dispo: pending surgical eval Code(s): M84.353A - STRESS FRACTURE, UNSPECIFIED FEMUR, INIT ENCNTR FOR FRACTURE (2) HTN (hypertension) Current Visit: Yes Status: Acute Code(s): I10 - ESSENTIAL (PRIMARY) HYPERTENSION (3) HLD (hyperlipidemia) Current Visit: Yes Status: Acute Code(s): E78.5 - HYPERLIPIDEMIA, UNSPECIFIED
[2024-04-19 05:30] LABS: BASOPHIL % 0.3 % (0.1-1.2); Basophil (Absolute #) 0.03 x10^3/uL (0.01-0.08); Eosinophil % 0.2 % (0.7-5.8); Eosinophil (Absolute #) 0.02 x10^3/uL (0.04-0.36); Hematocrit 36.5 % (34.1-44.9); Hemoglobin 12.2 g/dL (11.2-15.7); IMMATURE GRAN # 0.01 x10^3u/L (0.001-0.031); IMMATURE GRAN % 0.1 % (0.001-0.429); Lymphocytes % 13.9 % (19.3-51.7); Mean Cell Volume 94.8 fL (79.4-94.8); Mean Corpuscular Hemoglobin 31.7 pg (25.6-32.2); Mean Corpuscular Hgb Concent. 33.4 g/dL (32.2-35.5); Mean Platelet Volume 9.9 fL (9.4-12.3); Monocyte (Absolute #) 0.77 x10^3/uL (0.24-0.86); Monocytes % 8.9 % (4.7-12.5); Neutrophil % 76.6 % (34.0-71.1); Platelet Count 220 x10^3/uL (182-369); Red Blood Count 3.85 x10^6/uL (3.93-5.22); Red Cell Distribution Width 13.5 % (11.7-14.4); White Blood Count 8.6 x10^3/uL (3.98-10.04)
[2024-04-19 06:20] LABS: ALBUMIN 3.8 g/dL (3.5-5.0); ANION GAP 10.7 MEQ/L (5-15); Calcium 8.8 mg/dL (8.4-10.2); Creatinine 1 0.66 mg/dL (0.52-1.04); EST GLOMERULAR FILTRATION RATE 84.9 ML/MIN; Potassium 3.6 mmol/L (3.5-5.1); Total Protein 6.2 g/dL (6.3-8.2)
[2024-04-19] MEDS: CEFAZOLIN 2 GM/100 ML NaCl 2 GM/100 ML IVPB IV SCH (07:53)
[2024-04-19] MEDS: Hydromorphone 1 mg/ml Injection IV PRN (08:47)
--- NOTE | 2024-04-19 10:51 | CONS ---
DATE OF CONSULTATION: 04/17/2024 REASON FOR CONSULT: Left hip pain. HISTORY: The patient is an 88-year-old female who was seen in the outpatient orthopedic clinic twice for left hip pain. The first visit was 1 month ago and she had been having pain in the lateral left hip and groin area. She had tenderness over the lateral left hip, normal x-rays, was given a steroid injection and then followed up 1 month later with improvement of lateral hip pain but worsening of left groin and upper thigh pain. She was referred to have an MRI scan which was completed on April 17. At that time, the MRI showed evidence of a stress fracture of the femoral head and neck region. A followup CT scan was ordered, which showed evidence of a possible intertrochanteric fracture as well. These fractures were nondisplaced and not visible on plain radiographs. Due to ongoing pain and risk for displaced fracture, she was admitted for further care. PAST MEDICAL HISTORY: Peripheral neuropathy, hypertension, osteoarthritis, spinal fracture, osteoporosis. REVIEW OF SYSTEMS: Negative for HEENT, breathing issues, heart complaints, GI complaints, skin complaints. ADMISSION MEDICATIONS: Pyridium 200 mg t.i.d., Lipitor 10 mg at bedtime, Coreg 3.125 mg b.i.d., Enalapril 20 mg each morning, hydrochlorothiazide 25 mg daily, multivitamin daily, Percocet as needed for pain, vitamin supplements. ALLERGIES: NO KNOWN MEDICAL ALLERGIES. PAST SURGICAL HISTORY: Not stated. PHYSICAL EXAMINATION: GENERAL: Patient is awake, alert, oriented and in no acute distress. EXTREMITIES: She can move upper extremities without difficulty. She flex her left hip against gravity but has pain in the groin area. She can abduct and adduct her left thigh against resistance with pain. Passive flexion and rotation of the hip also elicits pain in the groin area. IMAGING: X-rays, left hip, 04/13/2024, negative. MRI, left hip, 04/17/2024, shows stress fracture of femoral head and neck with an intertrochanteric band of edema as well. CT scan, left hip, shows a darkened line in the intertrochanteric region consistent with possible nondisplaced fracture. IMPRESSION: Fracture left femoral head and neck. PLAN: We have discussed treatment options from nonoperative to operative. Nonoperative care would leave the patient at high risk for displaced fracture and emergent admission whereas operative care proposal included hemiarthroplasty, which would allow early full weightbearing. Patient is agreeable to proceeding with surgical management. We will proceed with this plan.
--- NOTE | 2024-04-19 10:52 | OP ---
SURGERY DATE/TIME: 04/18/2024 0989 - [id number] PREOPERATIVE DIAGNOSIS: Stress fracture, left hip. POSTOPERATIVE DIAGNOSIS: Stress fracture, left hip. PROCEDURE: Bipolar hemiarthroplasty, left hip with Filomena Avenir Complete. SURGEON: John Lei MD. INDICATIONS: This 88-year-old female was seen in our office with left hip pain 1 month ago. She returned for followup late last week and continued to have groin pain, so an MRI was ordered. The MRI was completed yesterday and was read as showing stress fracture. The MRI images showed evidence of cracks within the femoral head and superior neck. There was suggestion of a possible crack further distally near the intertrochanteric region. This was not seen on plain films and CT was initially read as negative as well. Because of the nondisplaced fractures of the head and neck, we recommended bipolar hemiarthroplasty. Nonoperative care was also discussed as an option. Patient elected for surgical management. DESCRIPTION OF PROCEDURE: Patient was seen preoperatively and the operative limb was identified, confirmed, and initialed. She was given a preoperative block and taken to the operating room. She was placed under general anesthesia and repositioned into a right lateral decubitus position. Following that, sterile prep and drape of the left hip were carried out. Posterior approach to the hip was performed. The gluteus was spread. Retractors were inserted. The external rotators were released from the posterior aspect of the greater trochanter followed by incision and retraction of the capsule. The hip was dislocated. The femoral head appeared non-fractured to the naked eye; however, the MRI had confirmed the internal damage. We osteotomized the femoral neck above the lesser trochanter. This bone was removed. We inserted retractors to expose the upper femur. We began broaching with the Filomena Avenir Complete broaches. We broached up to a size 5. The size 5 broach was very stable. No fractures were seen. We performed trial reduction with a 46 mm bipolar shell and 28 mm head with -3.5 mm length. The hip was found to be very stable with good range of motion. We removed the trial components and performed pulsatile lavage. We then inserted a size 5 standard Avenir Complete stem. When the stem neared full impaction, we noted that there was a small calcar crack, so we applied a cable to the calcar. The cable was cinched down through 64 pounds of torque, followed by full insertion of the stem. At that point, we inserted the final head and bipolar shell. The hip was reduced and was stable. We performed pulsatile lavage and proceeded to close the wound. We first closed the posterior hip joint capsule, repairing this with #1 Ethibond. The fascia was closed with #1 running Ethibond. The subcutaneous tissue was closed with 2-0 Vicryl and skin with running subcuticular Monocryl. Patient tolerated the procedure well.
[2024-04-19] MEDS: ECOTRIN 81 MG PO SCH (13:56)
--- NOTE | 2024-04-20 05:06 | PCM.NOTE ---
Date and Time: 04/20/24 0506 Subjective Assessment: is a 88 year old female with a PMHX of HLD and HTN patient of Dr. Lei (Ortho) direct admit for evaluation and treatment of MRI confirmed stress fracture left femur head/neck with small effusion. Patient states that she has been experiencing left groin and hip pain for the past month. Pain is aching in characteristic and only occurs with movement. She rates that pain 10/10 on a numerical pain scale when it occurs. Movement is the only aggravating factor. Pain is relieved with sitting or laying. No previous trauma. Plan per Ortho is to obtain CT and plan for surgical intervention either Tuesday/. Denies fever,cough, sob, cp, abdominal pain, ALMANZA, dizziness, N/V/D. 04/18/24: Met with patient and family at bedside. Reviewed imaging results with addendum. Plans for total left hip replacement today per Ortho. Pain is controlled with current management. Will order CXR for pre-surgical evaluation. Denies fever,cough, sob, cp, abdominal pain, ALMANZA, dizziness, N/V/D. 04/19/24: Met with patient at bedside. PODS#1. Endorses 7/10 pain to the left hip. [place] not relieving pain - will add dilaudid. She reports vomiting last night and nausea this morning. CM working on placement/swing. Denies fever,cough, sob, cp, abdominal pain, ALMANZA, dizziness, or diarrhea. 04/20/24: PODS#2 s/p left hip hemiarthroplasty. Endorses continued pain but improved. Numerical rating 5/10 this morning. Pt to work with PT today. No further N/V overnight. Tolerating a diet. Swing vs rehab pending. Denies fever,cough, sob, cp, abdominal pain, ALMANZA, dizziness, N/V/D. - Review of Systems Constitutional: No Symptoms Eyes: No Symptoms Ears, Nose, & Throat: No Symptoms Respiratory: No Symptoms Cardiac: No Symptoms Abdominal/Gastrointestinal: No Symptoms Genitourinary Symptoms: No Symptoms Musculoskeletal: Joint Pain (Left hip) Skin: Other (surgical incision left hip) Neurological: No Symptoms Psychological: No Symptoms Endocrine: No Symptoms Hematologic/Lymphatic: No Symptoms Immunological/Allergic: No Symptoms Objective Exam General Appearance: no apparent distress Neurologic Exam: alert, oriented x 3, cooperative Skin Exam: normal color Eye Exam: PERRL Ears, Nose, Throat Exam: normal ENT inspection Neck Exam: normal inspection Respiratory Exam: normal breath sounds, lungs clear Cardiovascular Exam: regular rate/rhythm, normal heart sounds Gastrointestinal/Abdomen Exam: soft, normal bowel sounds Extremity Exam: normal inspection, other (Surgical incision to left hip) Back Exam: normal inspection Pelvic Exam: deferred Rectal Exam: deferred Objective Data Vital Signs: Vital Signs - 24 hr Temp Pulse Resp BP BP Pulse Ox 04/20/24 04:00 98.8 F 64 18 150/67 95 04/20/24 00:00 98.6 F 54 L 20 154/68 96 04/19/24 19:52 97.9 F 78 16 129/61 160/72 94 L 04/19/24 15:53 98.0 F 60 18 132/64 90 L 04/19/24 12:00 98.6 F 66 18 149/78 91 L 04/19/24 06:53 98.0 F 64 16 133/63 91 L Pain Assessment - Last Documented Pain Intensity 5 Pain Scale Used 0-10 Pain Scale Intake and Output: Intake & Output 04/17/24 04/18/24 04/19/24 04/20/24 11:59 11:59 11:59 11:59 Intake Total 720 1600 2708 Output Total 1200 900 Balance -480 1600 1808 Weight 75.5 kg 75.5 kg Lab Results: Lab Results-Last 24 Hours 04/19/24 04/19/24 Range/Units 04:30 04:30 WBC 8.6 (3.98-10.04) x10^3/uL RBC 3.85 L (3.93-5.22) x10^6/uL Hgb 12.2 (11.2-15.7) g/dL Hct 36.5 (34.1-44.9) % MCV 94.8 (79.4-94.8) fL MCH 31.7 (25.6-32.2) pg MCHC 33.4 (32.2-35.5) g/dL RDW 13.5 (11.7-14.4) % Plt Count 220 (182-369) x10^3/uL MPV 9.9 (9.4-12.3) fL Gran % 76.6 H (34.0-71.1) % Immature Gran % (Auto) 0.1 (0.001-0.429) % Nucleat RBC Rel Count 0.0 (0.00-0.2) % Eos # (Auto) 0.02 L (0.04-0.36) x10^3/uL Immature Gran # (Auto) 0.01 (0.001-0.031) x10^3u/L Absolute Lymphs (auto) 1.20 (1.18-3.74) x10^3/uL Absolute Monos (auto) 0.77 (0.24-0.86) x10^3/uL Absolute Nucleated RBC 0.00 (0.00-0.012) x10^3u/L Lymphocytes % 13.9 L (19.3-51.7) % Monocytes % 8.9 (4.7-12.5) % Eosinophils % 0.2 L (0.7-5.8) % Basophils % 0.3 (0.1-1.2) % Absolute Granulocytes 6.60 H (1.56-6.13) x10^3/uL Basophils # 0.03 (0.01-0.08) x10^3/uL Sodium 139 (135-145) mmol/L Potassium 3.6 (3.5-5.1) mmol/L Chloride 105 (98-107) mmol/L Carbon Dioxide 27 (22-30) mmol/L Anion Gap 10.7 (5-15) MEQ/L BUN 17 (7-17) mg/dL Creatinine 0.66 (0.52-1.04) mg/dL Estimated GFR 84.9 ML/MIN Glucose 109 H (74-106) mg/dL Calcium 8.8 (8.4-10.2) mg/dL Total Bilirubin 1.00 (0.2-1.3) mg/dL AST 48 H (14-36) U/L ALT 36 H (0-35) U/L Alkaline Phosphatase 73 (38-126) U/L Serum Total Protein 6.2 L (6.3-8.2) g/dL Albumin 3.8 (3.5-5.0) g/dL Radiology Exams: Radiology Procedures Category Date Time Status CHEST 1 VIEW (PORTABLE) Stat Exams 04/18/24 09:54 Completed HIP (1V) INCL PEL IF DONE Routine Exams 04/18/24 16:13 Completed PELVIS (1 OR 2 VIEWS) Routine Exams 04/18/24 15:06 Completed Multi-Disciplinary Progress Notes: Multi-Disciplinary Progress Notes 04/19/24 13:12 Occupational Therapy Note by Viridiana Herrera Occupational Therapy Note: OT completed co treatment/co evaluation with Sandy Dominguez PT to address functional transfers and ADLs. Trang requires assist x 2 for supine<>Sit t/f due to left hip pain. Mod assist for sit<>stand t/f with second person assist as SBA (prn). Trang is noted with urine incontinence throughout session which she reports is at baseline; she is dependent for LB dressing and toileting hygiene. She requires step by step cuing during functional transfers and ADLs. D/C recommendation: Due to patient's home set up and assist level with ADLs, rehab placement most appropriate for patient. If a swing bed candidate, likely would require more assistance at home due to hip precautions and multiple steps. Initialized on 04/19/24 13:12 - END OF NOTE 04/19/24 12:08 Case Management Note by Donna Owen S/W PATIENT AND DAUGHTER, PEG, AND PATIENT WOULD LIKE REHAB OR SWINGBED IF SHE QUALIFIES FOR SHORT TIME BEFORE RETURNING HOME WITH [facility]. WOULD LIKE [facility] AT THAT TIME. IF SHE DOES NOT QUALIFY, THEN WOULD CONSIDER [facility] VS. PRIVATE CAREGIVERS IN THE HOME FOR A SHORT TIME. WILL F/U AGAIN TOMORROW. Initialized on 04/19/24 12:08 - END OF NOTE Assessment/Plan (1) Stress fracture of femur Current Visit: Yes Status: Acute Assessment & Plan: MRI reviewed: Impression: Stress fracture left femur head/neck with small effusion. Additional associated superior acetabulum bone bruising/edema. -Discussed case with Dr. Lei, plan for additional imaging to determine surgical treatment plan- Most likely Tuesday/ pending results -CMP, CBC, PT, PTT -Pain control - [place] 04/18/24: -Ortho following plan for left total hip replacement -Continue pain control -CXR - pre surgery 04/19: -PODS#1 -ortho following -Continue pain management - add breakthrough meds - diluadid -CM working on rehab vs swing 04/20: -Pain controlled -PT eval today -Swing vs rehab pending Code(s): M84.353A - STRESS FRACTURE, UNSPECIFIED FEMUR, INIT ENCNTR FOR FRACTURE (2) HTN (hypertension) Current Visit: Yes Status: Acute Assessment & Plan: -Stable, continue to Monitor - continue home meds Code(s): I10 - ESSENTIAL (PRIMARY) HYPERTENSION (3) HLD (hyperlipidemia) Current Visit: Yes Status: Acute Assessment & Plan: -continue statin #Hypokalemia -K+ at 3.2- will replenish VTE: bilateral SCD - hold anticoag for sx Dispo: pending surgical eval Code(s): M84.353A - STRESS FRACTURE, UNSPECIFIED FEMUR, INIT ENCNTR FOR FRACTURE (2) HTN (hypertension) Current Visit: Yes Status: Acute Code(s): I10 - ESSENTIAL (PRIMARY) HYPERTENSION (3) HLD (hyperlipidemia) Current Visit: Yes Status: Acute Code(s): E78.5 - HYPERLIPIDEMIA, UNSPECIFIED (4) Hypokalemia Current Visit: No Status: Acute Code(s): E87.6 - HYPOKALEMIA
[2024-04-20 05:21] LABS: Absolute Neutrophil Ct (ANC) 5.73 x10^3/uL (1.56-6.13); BASOPHIL % 0.1 % (0.1-1.2); Basophil (Absolute #) 0.01 x10^3/uL (0.01-0.08); Eosinophil % 0.7 % (0.7-5.8); Eosinophil (Absolute #) 0.06 x10^3/uL (0.04-0.36); Hematocrit 33.4 % (34.1-44.9); IMMATURE GRAN # 0.04 x10^3u/L (0.001-0.031); IMMATURE GRAN % 0.5 % (0.001-0.429); Lymphocyte (Absolute #) 1.74 x10^3/uL (1.18-3.74); Lymphocytes % 20.3 % (19.3-51.7); Mean Cell Volume 95.7 fL (79.4-94.8); Mean Corpuscular Hemoglobin 31.5 pg (25.6-32.2); Mean Corpuscular Hgb Concent. 32.9 g/dL (32.2-35.5); Mean Platelet Volume 9.8 fL (9.4-12.3); Monocytes % 11.7 % (4.7-12.5); Neutrophil % 66.7 % (34.0-71.1); Platelet Count 192 x10^3/uL (182-369); Red Blood Count 3.49 x10^6/uL (3.93-5.22); Red Cell Distribution Width 13.2 % (11.7-14.4); White Blood Count 8.6 x10^3/uL (3.98-10.04)
[2024-04-20 05:31] LABS: ALBUMIN 3.3 g/dL (3.5-5.0); ANION GAP 6.9 MEQ/L (5-15); BILIRUBIN,TOTAL 0.8 mg/dL (0.2-1.3); Calcium 8.4 mg/dL (8.4-10.2); Creatinine 1 0.67 mg/dL (0.52-1.04); EST GLOMERULAR FILTRATION RATE 84.5 ML/MIN; Potassium 3.2 mmol/L (3.5-5.1); Total Protein 5.6 g/dL (6.3-8.2)
[2024-04-20] MEDS: Klor Con PO SCH (07:32)
--- NOTE | 2024-04-20 08:04 | PCM.NOTE ---
Date and Time: 04/20/24 0801 Pt seen 04/19 but had password access trouble and note not recorded till now S--c/o pain in hip area, was up in chair O--pt aw, al, nad VSS dressing cdi, nvi A--stable POD 1 for left hip hemiarthroplasty P--cont to monitor lab PT/OT will not be ready to be home independent for 2-3 weeks most likely sls Objective Data Vital Signs: Vital Signs - 24 hr Temp Pulse Resp BP BP Pulse Ox 04/20/24 07:05 98.2 F 97 H 16 110/55 94 L 04/20/24 04:00 98.8 F 64 18 150/67 95 04/20/24 00:00 98.6 F 54 L 20 154/68 96 04/19/24 19:52 97.9 F 78 16 129/61 160/72 94 L 04/19/24 15:53 98.0 F 60 18 132/64 90 L 04/19/24 12:00 98.6 F 66 18 149/78 91 L Pain Assessment - Last Documented Pain Intensity 5 Pain Scale Used 0-10 Pain Scale Intake and Output: Intake & Output 04/17/24 04/18/24 04/19/24 04/20/24 11:59 11:59 11:59 11:59 Intake Total 720 1600 2708 Output Total 1200 900 Balance -480 1600 1808 Weight 75.5 kg 75.5 kg Lab Results: Lab Results-Last 24 Hours 04/20/24 04/20/24 Range/Units 04:26 04:26 WBC 8.6 (3.98-10.04) x10^3/uL RBC 3.49 L (3.93-5.22) x10^6/uL Hgb 11.0 L (11.2-15.7) g/dL Hct 33.4 L (34.1-44.9) % MCV 95.7 H (79.4-94.8) fL MCH 31.5 (25.6-32.2) pg MCHC 32.9 (32.2-35.5) g/dL RDW 13.2 (11.7-14.4) % Plt Count 192 (182-369) x10^3/uL MPV 9.8 (9.4-12.3) fL Gran % 66.7 (34.0-71.1) % Immature Gran % (Auto) 0.5 H (0.001-0.429) % Nucleat RBC Rel Count 0.0 (0.00-0.2) % Eos # (Auto) 0.06 (0.04-0.36) x10^3/uL Immature Gran # (Auto) 0.04 H (0.001-0.031) x10^3u/L Absolute Lymphs (auto) 1.74 (1.18-3.74) x10^3/uL Absolute Monos (auto) 1.00 H (0.24-0.86) x10^3/uL Absolute Nucleated RBC 0.00 (0.00-0.012) x10^3u/L Lymphocytes % 20.3 (19.3-51.7) % Monocytes % 11.7 (4.7-12.5) % Eosinophils % 0.7 (0.7-5.8) % Basophils % 0.1 (0.1-1.2) % Absolute Granulocytes 5.73 (1.56-6.13) x10^3/uL Basophils # 0.01 (0.01-0.08) x10^3/uL Sodium 135 (135-145) mmol/L Potassium 3.2 L (3.5-5.1) mmol/L Chloride 99 (98-107) mmol/L Carbon Dioxide 32 H (22-30) mmol/L Anion Gap 6.9 (5-15) MEQ/L BUN 15 (7-17) mg/dL Creatinine 0.67 (0.52-1.04) mg/dL Estimated GFR 84.5 ML/MIN Glucose 128 H (74-106) mg/dL Calcium 8.4 (8.4-10.2) mg/dL Total Bilirubin 0.80 (0.2-1.3) mg/dL AST 41 H (14-36) U/L ALT 27 (0-35) U/L Alkaline Phosphatase 60 (38-126) U/L Serum Total Protein 5.6 L (6.3-8.2) g/dL Albumin 3.3 L (3.5-5.0) g/dL Radiology Exams: Radiology Procedures Category Date Time Status CHEST 1 VIEW (PORTABLE) Stat Exams 04/18/24 09:54 Completed HIP (1V) INCL PEL IF DONE Routine Exams 04/18/24 16:13 Completed PELVIS (1 OR 2 VIEWS) Routine Exams 04/18/24 15:06 Completed Multi-Disciplinary Progress Notes: Multi-Disciplinary Progress Notes 04/19/24 13:12 Occupational Therapy Note by Viridiana Herrera Occupational Therapy Note: OT completed co treatment/co evaluation with Sandy Dominguez PT to address functional transfers and ADLs. Amy requires assist x 2 for supine<>Sit t/f due to left hip pain. Mod assist for sit<>stand t/f with second person assist as SBA (prn). Amy is noted with urine incontinence throughout session which she reports is at baseline; she is dependent for LB dressing and toileting hygiene. She requires step by step cuing during functional transfers and ADLs. D/C recommendation: Due to patient's home set up and assist level with ADLs, rehab placement most appropriate for patient. If a swing bed candidate, likely would require more assistance at home due to hip precautions and multiple steps. Addendum entered and electronically signed by Viridiana Herrera OT 04/20/24 07:51: Second Txm Session on 04/19/24: 17:05-17:30: Education provided on home set up and equipment recommendations. Family asking questions about rehab recommendations as SNF placement is out of the question for them. OT defers family to discuss swing bed with casemanager, but provided Therapy education on swing bed placement. Additionally, education provided on functional mobility and transfers with toileting tasks to improve her independence level. Co-treatment completed with PT in room for bed mobility and toileting task. Amy required assist x1 for functional transfer this date, but additional education on compliance with hip precautions required. She requires max assist to manage briefs for toileting, but completes hygiene per self at this time. She reports increased dizziness upon return to bed. OT provides dinner tray set up for meals and amy presents with more of an appetite this evening. Initialized on 04/19/24 13:12 - END OF NOTE 04/19/24 12:08 Case Management Note by Donna Owen S/W PATIENT AND DAUGHTER, PEG, AND PATIENT WOULD LIKE REHAB OR SWINGBED IF SHE QUALIFIES FOR SHORT TIME BEFORE RETURNING HOME WITH [facility]. WOULD LIKE [facility] AT THAT TIME. IF SHE DOES NOT QUALIFY, THEN WOULD CONSIDER [facility] VS. PRIVATE CAREGIVERS IN THE HOME FOR A SHORT TIME. WILL F/U AGAIN TOMORROW. Initialized on 04/19/24 12:08 - END OF NOTE
--- NOTE | 2024-04-20 12:19 | PCM.NOTE ---
Date and Time: 04/20/24 1216 Ortho Progress Note POD 2 left hip frx repair, hemiarthoplasty S--No new c/o, still has pain in hip buthas improved O--Pt up in chair, Aw, al, oriented Labs, vitals stable A-- POD 2 hemiarthroplasty of left hip P--cont ot and pt, likely to swing bed in am Objective Data Vital Signs: Vital Signs - 24 hr Temp Pulse Resp BP BP Pulse Ox 04/20/24 07:05 98.2 F 97 H 16 110/55 94 L 04/20/24 04:00 98.8 F 64 18 150/67 95 04/20/24 00:00 98.6 F 54 L 20 154/68 96 04/19/24 19:52 97.9 F 78 16 129/61 160/72 94 L 04/19/24 15:53 98.0 F 60 18 132/64 90 L Pain Assessment - Last Documented Pain Intensity 3 Pain Scale Used 0-10 Pain Scale Intake and Output: Intake & Output 04/18/24 04/19/24 04/20/24 04/21/24 11:59 11:59 11:59 11:59 Intake Total 720 1600 3088 Output Total 1200 1050 Balance -480 1600 2038 Weight 75.5 kg 75.5 kg Lab Results: Lab Results-Last 24 Hours 04/20/24 04/20/24 04/20/24 Range/Units 04:26 04:26 04:26 WBC 8.6 (3.98-10.04) x10^3/uL RBC 3.49 L (3.93-5.22) x10^6/uL Hgb 11.0 L (11.2-15.7) g/dL Hct 33.4 L (34.1-44.9) % MCV 95.7 H (79.4-94.8) fL MCH 31.5 (25.6-32.2) pg MCHC 32.9 (32.2-35.5) g/dL RDW 13.2 (11.7-14.4) % Plt Count 192 (182-369) x10^3/uL MPV 9.8 (9.4-12.3) fL Gran % 66.7 (34.0-71.1) % Immature Gran % (Auto) 0.5 H (0.001-0.429) % Nucleat RBC Rel Count 0.0 (0.00-0.2) % Eos # (Auto) 0.06 (0.04-0.36) x10^3/uL Immature Gran # (Auto) 0.04 H (0.001-0.031) x10^3u/L Absolute Lymphs (auto) 1.74 (1.18-3.74) x10^3/uL Absolute Monos (auto) 1.00 H (0.24-0.86) x10^3/uL Absolute Nucleated RBC 0.00 (0.00-0.012) x10^3u/L Lymphocytes % 20.3 (19.3-51.7) % Monocytes % 11.7 (4.7-12.5) % Eosinophils % 0.7 (0.7-5.8) % Basophils % 0.1 (0.1-1.2) % Absolute Granulocytes 5.73 (1.56-6.13) x10^3/uL Basophils # 0.01 (0.01-0.08) x10^3/uL Sodium 135 (135-145) mmol/L Potassium 3.2 L (3.5-5.1) mmol/L Chloride 99 (98-107) mmol/L Carbon Dioxide 32 H (22-30) mmol/L Anion Gap 6.9 (5-15) MEQ/L BUN 15 (7-17) mg/dL Creatinine 0.67 (0.52-1.04) mg/dL Estimated GFR 84.5 ML/MIN Glucose 128 H (74-106) mg/dL Calcium 8.4 (8.4-10.2) mg/dL Magnesium 2.1 (1.6-2.3) mg/dL Total Bilirubin 0.80 (0.2-1.3) mg/dL AST 41 H (14-36) U/L ALT 27 (0-35) U/L Alkaline Phosphatase 60 (38-126) U/L Serum Total Protein 5.6 L (6.3-8.2) g/dL Albumin 3.3 L (3.5-5.0) g/dL // Range/Units 11:20 WBC (3.98-10.04) x10^3/uL RBC (3.93-5.22) x10^6/uL Hgb (11.2-15.7) g/dL Hct (34.1-44.9) % MCV (79.4-94.8) fL MCH (25.6-32.2) pg MCHC (32.2-35.5) g/dL RDW (11.7-14.4) % Plt Count (182-369) x10^3/uL MPV (9.4-12.3) fL Gran % (34.0-71.1) % Immature Gran % (Auto) (0.001-0.429) % Nucleat RBC Rel Count (0.00-0.2) % Eos # (Auto) (0.04-0.36) x10^3/uL Immature Gran # (Auto) (0.001-0.031) x10^3u/L Absolute Lymphs (auto) (1.18-3.74) x10^3/uL Absolute Monos (auto) (0.24-0.86) x10^3/uL Absolute Nucleated RBC (0.00-0.012) x10^3u/L Lymphocytes % (19.3-51.7) % Monocytes % (4.7-12.5) % Eosinophils % (0.7-5.8) % Basophils % (0.1-1.2) % Absolute Granulocytes (1.56-6.13) x10^3/uL Basophils # (0.01-0.08) x10^3/uL Sodium (135-145) mmol/L Potassium 4.0 D (3.5-5.1) mmol/L Chloride (98-107) mmol/L Carbon Dioxide (22-30) mmol/L Anion Gap (5-15) MEQ/L BUN (7-17) mg/dL Creatinine (0.52-1.04) mg/dL Estimated GFR ML/MIN Glucose (74-106) mg/dL Calcium (8.4-10.2) mg/dL Magnesium (1.6-2.3) mg/dL Total Bilirubin (0.2-1.3) mg/dL AST (14-36) U/L ALT (0-35) U/L Alkaline Phosphatase (38-126) U/L Serum Total Protein (6.3-8.2) g/dL Albumin (3.5-5.0) g/dL Radiology Exams: Radiology Procedures Category Date Time Status HIP (1V) INCL PEL IF DONE Routine Exams 04/18/24 16:13 Completed PELVIS (1 OR 2 VIEWS) Routine Exams 04/18/24 15:06 Completed Multi-Disciplinary Progress Notes: Multi-Disciplinary Progress Notes 04/19/24 13:12 Occupational Therapy Note by Viridiana Herrera Occupational Therapy Note: OT completed co treatment/co evaluation with Sandy Dominguez PT to address functional transfers and ADLs. Trang requires assist x 2 for supine<>Sit t/f due to left hip pain. Mod assist for sit<>stand t/f with second person assist as SBA (prn). Trang is noted with urine incontinence throughout session which she reports is at baseline; she is dependent for LB dressing and toileting hygiene. She requires step by step cuing during functional transfers and ADLs. D/C recommendation: Due to patient's home set up and assist level with ADLs, rehab placement most appropriate for patient. If a swing bed candidate, likely would require more assistance at home due to hip precautions and multiple steps. Addendum entered and electronically signed by Viridiana Herrera OT 04/20/24 07:51: Second Txm Session on 04/19/24: 17:05-17:30: Education provided on home set up and equipment recommendations. Family asking questions about rehab recommendations as SNF placement is out of the question for them. OT defers family to discuss swing bed with casemanager, but provided Therapy education on swing bed placement. Additionally, education provided on functional mobility and transfers with toileting tasks to improve her independence level. Co-treatment completed with PT in room for bed mobility and toileting task. Trang required assist x1 for functional transfer this date, but additional education on compliance with hip precautions required. She requires max assist to manage briefs for toileting, but completes hygiene per self at this time. She reports increased dizziness upon return to bed. OT provides dinner tray set up for meals and trang presents with more of an appetite this evening. Initialized on 04/19/24 13:12 - END OF NOTE
[2024-04-20 20:51] VITALS: O2SAT 94
[2024-04-21 05:48] LABS: Absolute Neutrophil Ct (ANC) 4.68 x10^3/uL (1.56-6.13); BASOPHIL % 0.4 % (0.1-1.2); Basophil (Absolute #) 0.03 x10^3/uL (0.01-0.08); Eosinophil % 2.8 % (0.7-5.8); Eosinophil (Absolute #) 0.22 x10^3/uL (0.04-0.36); Hematocrit 30.9 % (34.1-44.9); Hemoglobin 10.3 g/dL (11.2-15.7); IMMATURE GRAN # 0.05 x10^3u/L (0.001-0.031); IMMATURE GRAN % 0.6 % (0.001-0.429); Lymphocyte (Absolute #) 2.03 x10^3/uL (1.18-3.74); Lymphocytes % 25.7 % (19.3-51.7); Mean Cell Volume 95.7 fL (79.4-94.8); Mean Corpuscular Hemoglobin 31.9 pg (25.6-32.2); Mean Corpuscular Hgb Concent. 33.3 g/dL (32.2-35.5); Mean Platelet Volume 9.8 fL (9.4-12.3); Monocytes % 11.4 % (4.7-12.5); Neutrophil % 59.1 % (34.0-71.1); Platelet Count 176 x10^3/uL (182-369); Red Blood Count 3.23 x10^6/uL (3.93-5.22); Red Cell Distribution Width 13.4 % (11.7-14.4); White Blood Count 7.9 x10^3/uL (3.98-10.04)
[2024-04-21 05:56] LABS: ALBUMIN 3.1 g/dL (3.5-5.0); ANION GAP 6.6 MEQ/L (5-15); BILIRUBIN,TOTAL 0.7 mg/dL (0.2-1.3); Calcium 8.5 mg/dL (8.4-10.2); Creatinine 1 0.65 mg/dL (0.52-1.04); EST GLOMERULAR FILTRATION RATE 85.2 ML/MIN; MAGNESIUM 2.1 mg/dL (1.6-2.3); Total Protein 5.5 g/dL (6.3-8.2)
[2024-04-21 08:20] VITALS: BP 148/70; PULSE 61; RESP 18; TEMP 97.9
[2024-04-21] MEDS: Ecotrin 325 MG PO SCH (09:06)
[2024-04-21] MEDS: Docusate Sodium 100 MG PO PRN (09:06)
--- NOTE | 2024-04-21 10:34 | PCM.DS ---
Discharge Summary Date of Admission: 04/18/24 15:00 Date of Discharge: 04/21/24 Admitting Physician: RIA LOVE MD Primary Care Provider: DERIC CANDELARIA Allergies Allergies daprodustat Allergy (Mild, Verified 04/17/24 17:01) [facility] Summary - Hospital Course Hospital Course: is a 88 year old female with a PMHX of HLD and HTN patient of Dr. Lei (Ortho) direct admit for evaluation and treatment of MRI confirmed stress fracture left femur head/neck with small effusion. Patient states that she has been experiencing left groin and hip pain for the past month. Ortho following patient left hemiarthroplasty performed 04/18/24. Patient is independent at home, due to patient's home set up and assist level with ADLs, rehab placement most appropriate for patient - will require short-term rehab stay in swing bed. Patient is POD#3 and doing well. Pain is controlled. Will discharge patient to swing bed today for continued rehab. Discharge Note New Diagnosis: Left femur fracture Latest Assessment & Plan (1) Stress fracture of femur Current Visit: Yes Status: Acute Assessment & Plan: MRI reviewed: Impression: Stress fracture left femur head/neck with small effusion. Additional associated superior acetabulum bone bruising/edema. -Discussed case with Dr. Lei, plan for additional imaging to determine surgical treatment plan- Most likely Tuesday/ pending results -CMP, CBC, PT, PTT -Pain control - [place] 04/18/24: -Ortho following plan for left total hip replacement -Continue pain control -CXR - pre surgery 04/19: -PODS#1 -ortho following -Continue pain management - add breakthrough meds - diluadid -CM working on rehab vs swing 04/20: -Pain controlled -PT eval today -Swing vs rehab pending 04/21: -Dc to swing bed for continued rehab -continue pain control Code(s): M84.353A - STRESS FRACTURE, UNSPECIFIED FEMUR, INIT ENCNTR FOR FRACTURE (2) HTN (hypertension) Current Visit: Yes Status: Acute Assessment & Plan: -Stable, continue to Monitor - continue home meds Code(s): I10 - ESSENTIAL (PRIMARY) HYPERTENSION (3) HLD (hyperlipidemia) Current Visit: Yes Status: Acute Assessment & Plan: -continue statin #Hypokalemia -K+ at 3.2- will replenish 04/21: -Resolved I spent 35 minutes [id number] with the patient on the day of discharge performing discharge exam, discussing hospital stay and discharge instructions with patient and caregivers, preparation of discharge records, prescriptions & referral forms and addressing any questions/concerns the patient had as documented above. - Vitals & Intake/Output Vital Signs: Vital Signs Temperature 97.9 F 04/21/24 08:00 Pulse Rate 61 04/21/24 08:00 Respiratory Rate 18 04/21/24 08:00 Blood Pressure 148/70 04/21/24 08:00 O2 Sat by Pulse Oximetry 94 L 04/21/24 08:00 Intake & Output: Intake & Output 04/18/24 04/19/24 04/20/24 04/21/24 11:59 11:59 11:59 11:59 Intake Total 720 1600 3088 1600 Output Total 1200 1050 750 Balance -480 1600 2038 850 Weight 75.5 kg 75.5 kg 75.5 kg - Lab Result Diagrams: 04/21/24 05:28 04/21/24 05:28 Lab Results-Last 24 Hrs: Lab Results-Last 24 Hours 04/20/24 04/20/24 04/21/24 Range/Units 11:20 15:30 05:28 WBC 7.9 (3.98-10.04) x10^3/uL RBC 3.23 L (3.93-5.22) x10^6/uL Hgb 10.3 L (11.2-15.7) g/dL Hct 30.9 L (34.1-44.9) % MCV 95.7 H (79.4-94.8) fL MCH 31.9 (25.6-32.2) pg MCHC 33.3 (32.2-35.5) g/dL RDW 13.4 (11.7-14.4) % Plt Count 176 L (182-369) x10^3/uL MPV 9.8 (9.4-12.3) fL Gran % 59.1 (34.0-71.1) % Immature Gran % (Auto) 0.6 H (0.001-0.429) % Nucleat RBC Rel Count 0.0 (0.00-0.2) % Eos # (Auto) 0.22 (0.04-0.36) x10^3/uL Immature Gran # (Auto) 0.05 H (0.001-0.031) x10^3u/L Absolute Lymphs (auto) 2.03 (1.18-3.74) x10^3/uL Absolute Monos (auto) 0.90 H (0.24-0.86) x10^3/uL Absolute Nucleated RBC 0.00 (0.00-0.012) x10^3u/L Lymphocytes % 25.7 (19.3-51.7) % Monocytes % 11.4 (4.7-12.5) % Eosinophils % 2.8 (0.7-5.8) % Basophils % 0.4 (0.1-1.2) % Absolute Granulocytes 4.68 (1.56-6.13) x10^3/uL Basophils # 0.03 (0.01-0.08) x10^3/uL Sodium (135-145) mmol/L Potassium 4.0 D 4.1 (3.5-5.1) mmol/L Chloride (98-107) mmol/L Carbon Dioxide (22-30) mmol/L Anion Gap (5-15) MEQ/L BUN (7-17) mg/dL Creatinine (0.52-1.04) mg/dL Estimated GFR ML/MIN Glucose (74-106) mg/dL Calcium (8.4-10.2) mg/dL Magnesium (1.6-2.3) mg/dL Total Bilirubin (0.2-1.3) mg/dL AST (14-36) U/L ALT (0-35) U/L Alkaline Phosphatase (38-126) U/L Serum Total Protein (6.3-8.2) g/dL Albumin (3.5-5.0) g/dL 04/21/24 Range/Units 05:28 WBC (3.98-10.04) x10^3/uL RBC (3.93-5.22) x10^6/uL Hgb (11.2-15.7) g/dL Hct (34.1-44.9) % MCV (79.4-94.8) fL MCH (25.6-32.2) pg MCHC (32.2-35.5) g/dL RDW (11.7-14.4) % Plt Count (182-369) x10^3/uL MPV (9.4-12.3) fL Gran % (34.0-71.1) % Immature Gran % (Auto) (0.001-0.429) % Nucleat RBC Rel Count (0.00-0.2) % Eos # (Auto) (0.04-0.36) x10^3/uL Immature Gran # (Auto) (0.001-0.031) x10^3u/L Absolute Lymphs (auto) (1.18-3.74) x10^3/uL Absolute Monos (auto) (0.24-0.86) x10^3/uL Absolute Nucleated RBC (0.00-0.012) x10^3u/L Lymphocytes % (19.3-51.7) % Monocytes % (4.7-12.5) % Eosinophils % (0.7-5.8) % Basophils % (0.1-1.2) % Absolute Granulocytes (1.56-6.13) x10^3/uL Basophils # (0.01-0.08) x10^3/uL Sodium 135 (135-145) mmol/L Potassium 4.0 (3.5-5.1) mmol/L Chloride 105 (98-107) mmol/L Carbon Dioxide 28 (22-30) mmol/L Anion Gap 6.6 (5-15) MEQ/L BUN 14 (7-17) mg/dL Creatinine 0.65 (0.52-1.04) mg/dL Estimated GFR 85.2 ML/MIN Glucose 122 H (74-106) mg/dL Calcium 8.5 (8.4-10.2) mg/dL Magnesium 2.1 (1.6-2.3) mg/dL Total Bilirubin 0.70 (0.2-1.3) mg/dL AST 38 H (14-36) U/L ALT 24 (0-35) U/L Alkaline Phosphatase 61 (38-126) U/L Serum Total Protein 5.5 L (6.3-8.2) g/dL Albumin 3.1 L (3.5-5.0) g/dL - Procedures and Test Procedures and Tests throughout Hospitalization: Therapy Orders & Screens 04/17/24 17:54 OT Screen per Nursing Assess ONCE Comment: Protocol Order Physician Instructions: Greater than 3 points order OT Admission Screening Reason For Exam: Triggered on Admission Diagnosis: STRESS FRACTURE LEFT FEMUR HEAD/NECK WITH SMALL EFFUSION Open Wound/Cellutlitis/Pressure Ulcers: No Acute Fx/ORIF/Change in wt bearing status: Yes Severe MUSCULOSKELETAL pain: No ADL Dysfunction: No Acute CVA w/Hemiparesis/Hemiplegia: No Decreased Functional Mobility/Strength: Yes Sprain/Strain: No Acute Post-op Mobility Dysfunction: No Total Points: 6 PT Screen per Nursing Assess ONCE Comment: Protocol Order Physician Instructions: Greater than 3 points order PT Admission Screenin Reason For Exam: Triggered on Admission Diagnosis: STRESS FRACTURE LEFT FEMUR HEAD/NECK WITH SMALL EFFUSION Open Wound/Cellutlitis/Pressure Ulcers: No Acute Fx/ORIF/Change in wt bearing status: Yes Severe MUSCULOSKELETAL pain: No ADL Dysfunction: No Acute CVA w/Hemiparesis/Hemiplegia: No Decreased Functional Mobility/Strength: Yes Sprain/Strain: No Acute Post-op Mobility Dysfunction: No Total Points: 6 04/18/24 16:30 OT Eval and Treat (MD Order) ROUTINE Comment: Physician Instructions: Reason For Exam: Diagnosis: STRESS FRACTURE LEFT FEMUR HEAD/NECK WITH SMALL EFFUSION 04/19/24 08:26 Incentive Spirometry UD Comment: Diagnosis: STRESS FRACTURE LEFT FEMUR HEAD/NECK WITH SMALL EFFUSION 04/19/24 08:35 PT Eval & Treat (MD Order) ONCE Reason for Eval:: WEIGHT BEARING TOLERATED WITH WALKER LEFT POSTERIOR HIP PRECAUTIONS Diagnosis: STRESS FRACTURE LEFT FEMUR HEAD/NECK WITH SMALL EFFUSION Discharge Exam General Appearance: no apparent distress Neurologic Exam: alert, oriented x 3, cooperative Eye Exam: PERRL Ears, Nose, Throat Exam: normal ENT inspection Neck Exam: normal inspection Respiratory Exam: crackles/rales Cardiovascular Exam: regular rate/rhythm, normal heart sounds Gastrointestinal/Abdomen Exam: soft, normal bowel sounds Pelvic Exam: deferred Rectal Exam: deferred Back Exam: normal inspection Extremity Exam: other (Surgical incision covered in dressing to left hip) Skin Exam: normal color Final Diagnosis/Problem List - Final Discharge Diagnosis/Problem (1) Stress fracture of femur Current Visit: Yes Status: Resolved Code(s): M84.353A - STRESS FRACTURE, UNSPECIFIED FEMUR, INIT ENCNTR FOR FRACTURE (2) HTN (hypertension) Current Visit: Yes Status: Chronic Code(s): I10 - ESSENTIAL (PRIMARY) HYPERTENSION (3) HLD (hyperlipidemia) Current Visit: Yes Status: Chronic Code(s): E78.5 - HYPERLIPIDEMIA, UNSPECIFIED (4) Hypokalemia Current Visit: No Status: Resolved Code(s): E87.6 - HYPOKALEMIA (5) Status post left hip replacement Current Visit: Yes Status: Acute Code(s): Z96.642 - PRESENCE OF LEFT PATSY FICIAL HIP JOINT - Discharge Discharge Date: 04/21/24 (DC to swing bed) Disposition: Swing Bed @ [facility] Condition: Stable Prescriptions: New Diclofenac Sodium 2 gm TP QID PRN PRN PRN Reason: Pain Docusate Sodium 100 mg [Docusate Sodium 100 MG] 100 mg PO BIDPRN PRN c ap PRN Reason: Constipation Aspirin EC 325 mg [Ecotrin 325 MG] 325 mg PO QAM tablet Acetaminophen 325 mg [Tylenol 325 mg] 650 mg PO Q4H PRN PRN tablet PRN Reason: Pain, Fever, Headache Ondansetron HCl 4 mg/2 ml [Zofran 4 MG/2 ML VIAL] 4 mg IV Q6H PRN PRN PRN Reason: Nausea/Vomiting Continue Carvedilol 3.125 mg [Coreg 3.125 MG] 3.125 mg PO BID Vitamin B Complex [B Complex] 1 tab PO DAILY Vit A/Vit C/Vit E/Zinc/Copper [Preservision Areds Tablet] 1 tablet PO DAILY Multivit-Min/Iron/Folic/Lutein [Centrum Silver Women Tablet] 1 each PO DAILY Sertraline HCl 50 mg [Zoloft 50 mg Tablet] 25 mg PO HS Atorvastatin Calcium [Lipitor] 10 mg PO HS Potassium Chloride Tab* [Klor Con] 10 meq PO DAILY Hydrochlorothiazide 25 mg [hydroDIURIL 25 MG] 12.5 mg PO DAILY Enalapril Maleate 10 mg [Vasotec 10 MG] 10 mg PO BID Follow up with: DERIC CANDELARIA NP [Primary Care Provider] - 05/07/24 10:30 am MADISON BARRETO NP [NON-STAFF PHY W/O PRIVILEGES] - 05/07/24 10:30 am
--- NOTE | 2024-04-21 10:59 | PCM.NOTE ---
Date and Time: 04/21/24 1056 Ortho Post Op Day 3 S-- no new c/o, states pain improving, moving better O--up in chair aw, al,nad nvi, dressing cdi lab stable A--POD 3 left hip hemiarthroplasty P--cont ot and pt, transfer to swing bed when avail follow up with ortho in 3-4 weeks remove dressing at post op day 7, then open to air Objective Data Vital Signs: Vital Signs - 24 hr Temp Pulse Resp BP Pulse Ox 04/21/24 08:00 97.9 F 61 18 148/70 94 L 04/21/24 04:00 97.4 F 72 15 133/62 94 L 04/21/24 00:00 68 04/20/24 20:00 97.0 F 64 16 164/70 94 L 04/20/24 16:00 97.6 F 64 19 103/52 90 L 04/20/24 12:00 97.6 F 60 16 131/60 98 Pain Assessment - Last Documented Pain Intensity 1 Pain Scale Used 0-10 Pain Scale Intake and Output: Intake & Output 04/18/24 04/19/24 04/20/24 04/21/24 11:59 11:59 11:59 11:59 Intake Total 720 1600 3088 1600 Output Total 1200 1050 750 Balance -480 1600 2038 850 Weight 75.5 kg 75.5 kg 75.5 kg Lab Results: Lab Results-Last 24 Hours 04/20/24 04/20/24 04/21/24 Range/Units 11:20 15:30 05:28 WBC 7.9 (3.98-10.04) x10^3/uL RBC 3.23 L (3.93-5.22) x10^6/uL Hgb 10.3 L (11.2-15.7) g/dL Hct 30.9 L (34.1-44.9) % MCV 95.7 H (79.4-94.8) fL MCH 31.9 (25.6-32.2) pg MCHC 33.3 (32.2-35.5) g/dL RDW 13.4 (11.7-14.4) % Plt Count 176 L (182-369) x10^3/uL MPV 9.8 (9.4-12.3) fL Gran % 59.1 (34.0-71.1) % Immature Gran % (Auto) 0.6 H (0.001-0.429) % Nucleat RBC Rel Count 0.0 (0.00-0.2) % Eos # (Auto) 0.22 (0.04-0.36) x10^3/uL Immature Gran # (Auto) 0.05 H (0.001-0.031) x10^3u/L Absolute Lymphs (auto) 2.03 (1.18-3.74) x10^3/uL Absolute Monos (auto) 0.90 H (0.24-0.86) x10^3/uL Absolute Nucleated RBC 0.00 (0.00-0.012) x10^3u/L Lymphocytes % 25.7 (19.3-51.7) % Monocytes % 11.4 (4.7-12.5) % Eosinophils % 2.8 (0.7-5.8) % Basophils % 0.4 (0.1-1.2) % Absolute Granulocytes 4.68 (1.56-6.13) x10^3/uL Basophils # 0.03 (0.01-0.08) x10^3/uL Sodium (135-145) mmol/L Potassium 4.0 D 4.1 (3.5-5.1) mmol/L Chloride (98-107) mmol/L Carbon Dioxide (22-30) mmol/L Anion Gap (5-15) MEQ/L BUN (7-17) mg/dL Creatinine (0.52-1.04) mg/dL Estimated GFR ML/MIN Glucose (74-106) mg/dL Calcium (8.4-10.2) mg/dL Magnesium (1.6-2.3) mg/dL Total Bilirubin (0.2-1.3) mg/dL AST (14-36) U/L ALT (0-35) U/L Alkaline Phosphatase (38-126) U/L Serum Total Protein (6.3-8.2) g/dL Albumin (3.5-5.0) g/dL 04/21/24 Range/Units 05:28 WBC (3.98-10.04) x10^3/uL RBC (3.93-5.22) x10^6/uL Hgb (11.2-15.7) g/dL Hct (34.1-44.9) % MCV (79.4-94.8) fL MCH (25.6-32.2) pg MCHC (32.2-35.5) g/dL RDW (11.7-14.4) % Plt Count (182-369) x10^3/uL MPV (9.4-12.3) fL Gran % (34.0-71.1) % Immature Gran % (Auto) (0.001-0.429) % Nucleat RBC Rel Count (0.00-0.2) % Eos # (Auto) (0.04-0.36) x10^3/uL Immature Gran # (Auto) (0.001-0.031) x10^3u/L Absolute Lymphs (auto) (1.18-3.74) x10^3/uL Absolute Monos (auto) (0.24-0.86) x10^3/uL Absolute Nucleated RBC (0.00-0.012) x10^3u/L Lymphocytes % (19.3-51.7) % Monocytes % (4.7-12.5) % Eosinophils % (0.7-5.8) % Basophils % (0.1-1.2) % Absolute Granulocytes (1.56-6.13) x10^3/uL Basophils # (0.01-0.08) x10^3/uL Sodium 135 (135-145) mmol/L Potassium 4.0 (3.5-5.1) mmol/L Chloride 105 (98-107) mmol/L Carbon Dioxide 28 (22-30) mmol/L Anion Gap 6.6 (5-15) MEQ/L BUN 14 (7-17) mg/dL Creatinine 0.65 (0.52-1.04) mg/dL Estimated GFR 85.2 ML/MIN Glucose 122 H (74-106) mg/dL Calcium 8.5 (8.4-10.2) mg/dL Magnesium 2.1 (1.6-2.3) mg/dL Total Bilirubin 0.70 (0.2-1.3) mg/dL AST 38 H (14-36) U/L ALT 24 (0-35) U/L Alkaline Phosphatase 61 (38-126) U/L Serum Total Protein 5.5 L (6.3-8.2) g/dL Albumin 3.1 L (3.5-5.0) g/dL Multi-Disciplinary Progress Notes: Multi-Disciplinary Progress Notes 04/20/24 17:20 Physical Therapy Note by Angelica(Priya#[id number])Sandy PT. WAS SEEN BY P.T. THIS A.M. RATES L HIP PN AT 3/10 W/ PN MEDS. PT. ALERT AND ORIENTED AND AGREEABLE TO P.T. PT. IN BEDSIDE RECLINER W/ ASSIST OF STRIPPER COLOR. PT. PERFORMED SEATED QUAD SETS, GLUT SETS, ANKLE PUMPS, HEEL SLIDES, ABD SLIDES BILATERAL LES. PERFORMED SIT TO STAND W/ MIN-MOD ASSIST X 1 W/ V.C. TO DECREASE TRUNK FLEXION AND TO POSITION L LE IN / PRIOR TO STANDING. PT. ABLE TO TAKE 3-4 STEPS TO TRANSFER TO BEDSIDE COMMODE W/ MIN-MOD ASSIST. MANY V.C. GIVEN FOR WALKER PLACEMENT AND HAND PLACEMENT FOR SIT TO STAND. PT. ABLE TO STAND TO PERFORM HYGIENE AFTER TOILETING W/ MIN ASSIST. PLAN IS TO CONT. P.T. ON SWING BED. Initialized on 04/20/24 17:20 - END OF NOTE 04/20/24 13:53 Occupational Therapy Note by Viridiana Herrera OCCUPATIONAL THERAPY TREATMENT (13:12-13:38) OT PROVIDED EDUCATION HANDOUT OVER POSTERIOR HIP PRECAUTIONS WITH GOOD RETURN DEMO AND REVIEW. SHE WAS ABLE TO RECALL THE TASKS SHE COMPLETED THIS MORNING WHERE SHE FORGOT ABOUT THE HIP PRECAUTIONS WITHOUT PROMPTING (TRYING TO PICK DEPENDS UP FROM FLOOR). OT PROVIDED PATIENT WITH HOSPITAL PHYSICAL THERAPIST AIDE TO UTILIZE THROUGHOUT HER STAY AND WILL PROVIDE A/E AT DISCHARGE. SANTA THEN ENGAGED IN FUNCTIONAL TRANSFER AND MOBILITY TRAINING IN PREPARATION FOR TOILETING TASK. SHE TOLERATED FUNCTIONAL MOBILITY, APPROXIMATELY 12 FEET WITHIN ROOM (TO AND FROM BATHROOM). SHE DECLINED THE NEED TO UTILIZE BSC AT THIS TIME AND EDUCATION PROVIDED ON SCHEDULING TOILETING TASK DUE TO INCONTINENCE. PATIENT COMPLATED ALL SIT<>sTAND T/F WITH CGA/MIN ASSIST AND THE SAME ASSIST THROUGHOUT FUNCTIONAL MOBILITY. SHE THEN COMPLETED BED MOBILITY WITH MIN ASSIST, FREQUENT VERBAL CUES REQUIRED THROUGHOUT FOR TECHNIQUE. Initialized on 04/20/24 13:53 - END OF NOTE 04/20/24 12:51 Case Management Note by Donna Owen S/W PATIENT AND DAUGHTER AND THEY ARE WANTING TO UTILIZE SWINGBED PROGRAM. AFTER DISCHARGE [facility]. THEY WOULD LIKE TO GO HOME IF POSSIBLE WITH THE STEPS. IF STILL HAVING PROBLEMS WITH STEPS, SNF WOULD BE POSSIBLITY FOR SHORT TERM. HAVE ALREADY FILLED OUT APPLICATION FOR STAY AT THE [facility] IF NEEDED AND HAVE BEEN APRROVED. Initialized on 04/20/24 12:51 - END OF NOTE
== END 2024-04-21 11:16 | disposition swing bed (61) | DRG 522 ==
LOC: RAD 14:03 → MED SURG 15:00 → EDSTATUS 16:11 → MED SURG 16:12 → OBSVTOIN 04-18 15:00
PROVIDERS: ADMIT Internal Medicine; ATTEND Orthopaedic Surgery
PROC: 0SRS0JZ Replacement of Left Hip Joint, Femoral Surface with Synthetic Substitute, Open Approach (ICD-10-PCS; principal; 2024-04-18)
DX: M84.352A Stress fracture, left femur, initial encounter for fracture (principal); I10 Essential (primary) hypertension; E78.5 Hyperlipidemia, unspecified; E87.6 Hypokalemia; Z96.642 Presence of left artificial hip joint; Z79.899 Other long term (current) drug therapy
CPT/HCPCS: 27236; 36415; 71045; 72170; 73501; 73700; 73721; 76937; 80053; 83735; 84132; 85025; 85610; 85730; 93268; 97110; 97161; 97165; 97530; C1776; G0378; Q3014; J0690; J1170; J2250; J2405; J3010; J3480; A9270-GY

== ENCOUNTER 2024-04-21 10:26 | Inpatient (IN) | payer MEDICARE, OTHER ==
[2024-04-21] MEDS ORDERED: DICLOFENAC SODIUM TP PRN (11:26)
[2024-04-21] MEDS ORDERED: Hydromorphone 1 mg/ml Injection IV PRN (11:26)
[2024-04-21] MEDS ORDERED: Zofran 4 MG/2 ML VIAL IV PRN (11:26)
--- NOTE | 2024-04-21 15:38 | PCM.HP ---
History of Present Illness - Chief Complaint Chief Complaint: DECONDITIONING R/T FRACTURE LEFT HIP STATUS POST LEFT HIP A RTHROPLASTY Date: 04/21/24 History of Present Illness: is a 88 year old female PMHX of HLD and HTN patient of Dr. Lei (Ortho) with an MRI confirmed stress fracture left femur head/neck with small effusion s/p left hemiarthroplasty performed 04/18/24. Patient to transition to swing bed per request of Ortho. Patient is doing well POD#3. Pain level is at 4/10 on interview. Patient is independent at home. She does have a tri-level home and is currently requiring assistance with ADLs. She is being admitted to swing bed for short-term rehab. - Review of Systems Constitutional: No Symptoms Eyes: No Symptoms Ears, Nose, & Throat: No Symptoms Respiratory: No Symptoms Cardiac: No Symptoms Abdominal/Gastrointestinal: No Symptoms Genitourinary Symptoms: No Symptoms Musculoskeletal: Joint Pain (left hip 4/10) Skin: Other (surgical wound to left hip covered) Neurological: No Symptoms Psychological: No Symptoms Endocrine: No Symptoms Hematologic/Lymphatic: No Symptoms Immunological/Allergic: No Symptoms Medications & Allergies Home Medications: Home Medication List Carvedilol 3.125 mg [Coreg 3.125 MG] 3.125 mg PO BID 09/23/23 [History Confirmed 04/21/24] Multivit-Min/Iron/Folic/Lutein [Centrum Silver Women Tablet] 1 each PO DAILY 09/23/23 [History Confirmed 04/21/24] Vit A/Vit C/Vit E/Zinc/Copper [Preservision Areds Tablet] 1 tablet PO DAILY 09/23/23 [History Confirmed 04/21/24] Vitamin B Complex [B Complex] 1 tab PO DAILY 09/23/23 [History Confirmed 04/21/24] Atorvastatin Calcium [Lipitor] 10 mg PO HS 04/17/24 [History Confirmed 04/21/24] Enalapril Maleate 10 mg [Vasotec 10 MG] 10 mg PO BID 04/17/24 [History Confirmed 04/21/24] Hydrochlorothiazide 25 mg [hydroDIURIL 25 MG] 12.5 mg PO DAILY 04/17/24 [History Confirmed 04/21/24] Potassium Chloride Tab* [Klor Con] 10 meq PO DAILY 04/17/24 [History Confirmed 04/21/24] Sertraline HCl 50 mg [Zoloft 50 mg Tablet] 25 mg PO HS 04/17/24 [History Confirmed 04/21/24] Acetaminophen 325 mg [Tylenol 325 mg] 650 mg PO Q4H PRN PRN tablet 04/21/24 [Rx Confirmed 04/21/24] Aspirin EC 325 mg [Ecotrin 325 MG] 325 mg PO QAM tablet 04/21/24 [Rx Confirmed 04/21/24] Diclofenac Sodium 2 gm TP QID PRN PRN 04/21/24 [Rx Confirmed 04/21/24] Docusate Sodium 100 mg [Docusate Sodium 100 MG] 100 mg PO BIDPRN PRN cap 04/21/24 [Rx Confirmed 04/21/24] Ondansetron HCl 4 mg/2 ml [Zofran 4 MG/2 ML VIAL] 4 mg IV Q6H PRN PRN 04/21/24 [Rx Confirmed 04/21/24] Allergies/Adverse Reactions: Allergies Allergy/AdvReac Type Severity Reaction Status Date / Time daprodustat Allergy Mild Hives Verified 04/21/24 11:34 - Past Medical History Past Medical History: Yes Neurological History: No Pertinent History ENT History: Cataracts Cardiac History: High Cholesterol, Hypertension Respiratory History: No Pertinent History Endocrine Medical History: No Pertinent History Musculoskelatal History: Fractures GI Medical History: No Pertinent History History: Other Pyscho-Social History: Anxiety, Depression Reproductive Disorders: No Pertinent History Comment: CAFFEIN RELATED PVCS IN 1978, MELANOMA AND BASAL CELL CANCER, 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 - Past Surgical History Past Surgical History: Yes Neuro Surgical History: No Pertinent History Cardiac History: No Pertinent History Respiratory Surgery: No Pertinent History GI Surgical History: No Pertinent History Genitourinary Surgical Hx: Other Musculskeletal Surgical Hx: No Pertinent History Female Surgical History: Hysterectomy, Other Other Surgical History: CYSTOCELE REPAIR, RECTOCELE REPAIR, LEFT CARPAL TUNNEL REPAIR, PTOSIS OF EYELID REPAIR, MOHS FOR BASAL CELL, PARTIAL VULVECTOMY Significant Family History: no pertinent family hx - Social History Smoking Status: Former smoker Exposure to second hand smoke: No Alcohol: None Drug Use: none - Social Determinants of Health Will the patient participate in the screening: Yes Do you worry about a steady place to live?: No Do you have any problems with any of the following?: No known problems In the past 12 months,have you had to go without utilities?: No Have you or anyone in your house had to go without enough: No Transportation Issues: No Has anyone in your support network made you feel unsafe?: No Does the patient want assistance with any of the above?: No - Physical Exam Vital Signs: Vital Signs - 24 hr Temp Pulse Resp BP Pulse Ox 04/21/24 11:46 97.4 F 61 20 97/51 92 L 04/21/24 11:44 97.4 F 61 20 97/51 91 L General Appearance: no apparent distress Neurologic Exam: alert, oriented x 3, cooperative Eye Exam: PERRL/EOMI Ears, Nose, Throat Exam: normal ENT inspection Neck Exam: normal inspection Respiratory Exam: crackles/rales Cardiovascular Exam: regular rate/rhythm, normal heart sounds Gastrointestinal/Abdomen Exam: normal bowel sounds Pelvic Exam: not done Rectal Exam: deferred Back Exam: normal inspection Extremity Exam: normal inspection Skin Exam: normal color Assessment/Plan (1) Stress fracture of femur Current Visit: No Status: Resolved Assessment & Plan: MRI reviewed: Impression: Stress fracture left femur head/neck with small effusion. Additional associated superior acetabulum bone bruising/edema. -left hemiarthroplasty performed 04/18/24 POD#3 -Dressing changes per ORTHO -Pain control -PT Code(s): M84.353A - STRESS FRACTURE, UNSPECIFIED FEMUR, INIT ENCNTR FOR FRACTURE (2) HTN (hypertension) Current Visit: Yes Status: Acute Assessment & Plan: -Stable, continue to Monitor - continue home meds Code(s): I10 - ESSENTIAL (PRIMARY) HYPERTENSION (3) HLD (hyperlipidemia) Current Visit: Yes Status: Acute Assessment & Plan: -continue statin S/P left hip replacement -see stress fracture above Code(s): M84.353A - STRESS FRACTURE, UNSPECIFIED FEMUR, INIT ENCNTR FOR FRACTURE (2) Status post left hip replacement Current Visit: Yes Status: Acute Code(s): Z96.642 - PRESENCE OF LEFT ARTIFICIAL HIP JOINT (3) HLD (hyperlipidemia) Current Visit: No Status: Chronic Code(s): E78.5 - HYPERLIPIDEMIA, UNSPECIFIED (4) HTN (hypertension) Current Visit: No Status: Chronic Code(s): I10 - ESSENTIAL (PRIMARY) HYPERTENSION
--- NOTE | 2024-04-21 15:55 | PCM.NOTE ---
is a 88 year old female PMHX of HLD and HTN patient of Dr. Lei (Ortho) with an MRI confirmed stress fracture left femur head/neck with small effusion s/p left hemiarthroplasty performed 7. Patient to transition to swing bed per request of Ortho. Patient is doing well POD#3. Pain level is at 4/10 on interview. Patient is independent at home. She does have a tri-level home and is currently requiring assistance with ADLs. She is being admitted to swing bed for short-term rehab. 1) Stress fracture of femur Current Visit: No Status: Resolved Assessment & Plan: MRI reviewed: Impression: Stress fracture left femur head/neck with small effusion. Additional associated superior acetabulum bone bruising/edema. -left hemiarthroplasty performed 04/18/24 POD#3 -Dressing changes per ORTHO -Pain control -PT Code(s): M84.353A - STRESS FRACTURE, UNSPECIFIED FEMUR, INIT ENCNTR FOR FRACTURE (2) HTN (hypertension) Current Visit: Yes Status: Acute Assessment & Plan: -Stable, continue to Monitor - continue home meds Code(s): I10 - ESSENTIAL (PRIMARY) HYPERTENSION (3) HLD (hyperlipidemia) Current Visit: Yes Status: Acute Assessment & Plan: -continue statin S/P left hip replacement -see stress fracture above
[2024-04-21] MEDS: Aplisol ID ONE (18:01)
[2024-04-21] MEDS: Zocor 10MG PO SCH (21:49)
[2024-04-21] MEDS: ZOLOFT 50 MG TABLET PO SCH (21:49)
[2024-04-21] MEDS: Vasotec 10 MG PO SCH (21:50)
[2024-04-21] MEDS: Coreg 3.125 MG PO SCH (21:50)
--- NOTE | 2024-04-22 05:37 | PCM.HP ---
History of Present Illness - Chief Complaint Chief Complaint: DECONDITIONING R/T FRACTURE LEFT HIP STATUS POST LEFT HIP A RTHROPLASTY Date: 04/22/24 History of Present Illness: is a 88 year old female PMHX of HLD and HTN patient of Dr. Lei (Ortho) with an MRI confirmed stress fracture left femur head/neck with small effusion s/p left hemiarthroplasty performed 04/18/24. Patient to transition to swing bed per request of Ortho. Patient is doing well POD#4. Pain level is at 3/10 on interview. Is having some constipation. Labs and vitals stable. Patient is independent at home. She does have a tri-level home and is currently requiring assistance with ADLs. She is being admitted to swing bed for short- term rehab. - Review of Systems Constitutional: No Symptoms Eyes: No Symptoms Ears, Nose, & Throat: No Symptoms Respiratory: No Symptoms Cardiac: No Symptoms Abdominal/Gastrointestinal: Constipation Genitourinary Symptoms: No Symptoms Musculoskeletal: No Symptoms Skin: Other (Left hip surgical incision covered with dressing ) Neurological: No Symptoms Psychological: No Symptoms Endocrine: No Symptoms Hematologic/Lymphatic: No Symptoms Immunological/Allergic: No Symptoms Medications & Allergies Home Medications: Home Medication List Carvedilol 3.125 mg [Coreg 3.125 MG] 3.125 mg PO BID 09/23/23 [History Confirmed 04/21/24] Multivit-Min/Iron/Folic/Lutein [Centrum Silver Women Tablet] 1 each PO DAILY 09/23/23 [History Confirmed 04/21/24] Vit A/Vit C/Vit E/Zinc/Copper [Preservision Areds Tablet] 1 tablet PO DAILY 09/23/23 [History Confirmed 04/21/24] Vitamin B Complex [B Complex] 1 tab PO DAILY 09/23/23 [History Confirmed 4] Atorvastatin Calcium [Lipitor] 10 mg PO HS 04/17/24 [History Confirmed 04/21/24] Enalapril Maleate 10 mg [Vasotec 10 MG] 10 mg PO BID 04/17/24 [History Confirmed 04/21/24] Hydrochlorothiazide 25 mg [hydroDIURIL 25 MG] 12.5 mg PO DAILY 04/17/24 [History Confirmed 04/21/24] Potassium Chloride Tab* [Klor Con] 10 meq PO DAILY 04/17/24 [History Confirmed 04/21/24] Sertraline HCl 50 mg [Zoloft 50 mg Tablet] 25 mg PO HS 04/17/24 [History Confirmed 04/21/24] Acetaminophen 325 mg [Tylenol 325 mg] 650 mg PO Q4H PRN PRN tablet 04/21/24 [Rx Confirmed 04/21/24] Aspirin EC 325 mg [Ecotrin 325 MG] 325 mg PO QAM tablet 04/21/24 [Rx Confirmed 04/21/24] Diclofenac Sodium 2 gm TP QID PRN PRN 04/21/24 [Rx Confirmed 04/21/24] Docusate Sodium 100 mg [Docusate Sodium 100 MG] 100 mg PO BIDPRN PRN cap 04/21/24 [Rx Confirmed 04/21/24] Ondansetron HCl 4 mg/2 ml [Zofran 4 MG/2 ML VIAL] 4 mg IV Q6H PRN PRN 04/21/24 [Rx Confirmed 04/21/24] Allergies/Adverse Reactions: Allergies Allergy/AdvReac Type Severity Reaction Status Date / Time daprodustat Allergy Mild Hives Verified 04/21/24 11:34 - Past Medical History Past Medical History: Yes Neurological History: No Pertinent History ENT History: Cataracts Cardiac History: High Cholesterol, Hypertension Respiratory History: No Pertinent History Endocrine Medical History: No Pertinent History Musculoskelatal History: Fractures GI Medical History: No Pertinent History History: Other Pyscho-Social History: Anxiety, Depression Reproductive Disorders: No Pertinent History Comment: CAFFEIN RELATED PVCS IN 1978, MELANOMA AND BASAL CELL CANCER, 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 - Past Surgical History Past Surgical History: Yes Neuro Surgical History: No Pertinent History Cardiac History: No Pertinent History Respiratory Surgery: No Pertinent History GI Surgical History: No Pertinent History Genitourinary Surgical Hx: Other Musculskeletal Surgical Hx: No Pertinent History Female Surgical History: Hysterectomy, Other Other Surgical History: CYSTOCELE REPAIR, RECTOCELE REPAIR, LEFT CARPAL TUNNEL REPAIR, PTOSIS OF EYELID REPAIR, MOHS FOR BASAL CELL, PARTIAL VULVECTOMY Significant Family History: no pertinent family hx - Social History Smoking Status: Former smoker Exposure to second hand smoke: No Alcohol: None Drug Use: none - Social Determinants of Health Will the patient participate in the screening: Yes Do you worry about a steady place to live?: No Do you have any problems with any of the following?: No known problems In the past 12 months,have you had to go without utilities?: No Have you or anyone in your house had to go without enough: No Transportation Issues: No Has anyone in your support network made you feel unsafe?: No Does the patient want assistance with any of the above?: No - Physical Exam Vital Signs: Vital Signs - 24 hr Temp Pulse Resp BP Pulse Ox 04/21/24 20:00 97.0 F 63 20 156/70 94 L 04/21/24 11:46 97.4 F 61 20 97/51 92 L 04/21/24 11:44 97.4 F 61 20 97/51 91 L General Appearance: no apparent distress Neurologic Exam: alert, oriented x 3, cooperative Eye Exam: PERRL/EOMI Ears, Nose, Throat Exam: normal ENT inspection Neck Exam: normal inspection Respiratory Exam: crackles/rales Cardiovascular Exam: regular rate/rhythm, normal heart sounds Gastrointestinal/Abdomen Exam: soft, normal bowel sounds Pelvic Exam: not done Rectal Exam: deferred Back Exam: normal inspection Extremity Exam: other (Left hip surgical incision covered with dressing) Skin Exam: normal color Assessment/Plan (1) Stress fracture of femur Current Visit: No Status: Resolved Assessment & Plan: MRI reviewed: Impression: Stress fracture left femur head/neck with small effusion. Additional associated superior acetabulum bone bruising/edema. -left hemiarthroplasty performed 04/18/24 POD#4 -Dressing changes per ORTHO -Pain control -PT Code(s): M84.353A - STRESS FRACTURE, UNSPECIFIED FEMUR, INIT ENCNTR FOR FRACTURE (2) HTN (hypertension) Current Visit: Yes Status: Acute Assessment & Plan: -Stable, continue to Monitor - continue home meds Code(s): I10 - ESSENTIAL (PRIMARY) HYPERTENSION (3) HLD (hyperlipidemia) Current Visit: Yes Status: Acute Assessment & Plan: -continue statin S/P left hip replacement -see stress fracture above Code(s): M84.353A - STRESS FRACTURE, UNSPECIFIED FEMUR, INIT ENCNTR FOR FRACTURE (2) Status post left hip replacement Current Visit: Yes Status: Acute Code(s): Z96.642 - PRESENCE OF LEFT ARTIFICIAL HIP JOINT (3) HLD (hyperlipidemia) Current Visit: No Status: Chronic Code(s): E78.5 - HYPERLIPIDEMIA, UNSPECIFIED (4) HTN (hypertension) Current Visit: No Status: Chronic Code(s): I10 - ESSENTIAL (PRIMARY) HYPERTENSION
[2024-04-22 06:27] LABS: Absolute Neutrophil Ct (ANC) 3.85 x10^3/uL (1.56-6.13); BASOPHIL % 0.6 % (0.1-1.2); Basophil (Absolute #) 0.04 x10^3/uL (0.01-0.08); Eosinophil % 3.7 % (0.7-5.8); Eosinophil (Absolute #) 0.25 x10^3/uL (0.04-0.36); Hemoglobin 10.4 g/dL (11.2-15.7); IMMATURE GRAN # 0.06 x10^3u/L (0.001-0.031); IMMATURE GRAN % 0.9 % (0.001-0.429); Lymphocyte (Absolute #) 1.76 x10^3/uL (1.18-3.74); Lymphocytes % 26.3 % (19.3-51.7); Mean Cell Volume 95.1 fL (79.4-94.8); Mean Corpuscular Hemoglobin 31.9 pg (25.6-32.2); Mean Corpuscular Hgb Concent. 33.5 g/dL (32.2-35.5); Mean Platelet Volume 9.1 fL (9.4-12.3); Monocyte (Absolute #) 0.73 x10^3/uL (0.24-0.86); Monocytes % 10.9 % (4.7-12.5); Neutrophil % 57.6 % (34.0-71.1); Platelet Count 191 x10^3/uL (182-369); Red Blood Count 3.26 x10^6/uL (3.93-5.22); Red Cell Distribution Width 13.6 % (11.7-14.4); White Blood Count 6.7 x10^3/uL (3.98-10.04)
[2024-04-22 06:40] LABS: ALBUMIN 3.2 g/dL (3.5-5.0); BILIRUBIN,TOTAL 0.7 mg/dL (0.2-1.3); Calcium 8.5 mg/dL (8.4-10.2); Creatinine 1 0.63 mg/dL (0.52-1.04); EST GLOMERULAR FILTRATION RATE 85.8 ML/MIN; Potassium 3.9 mmol/L (3.5-5.1); Total Protein 5.7 g/dL (6.3-8.2)
[2024-04-22] MEDS: Klor Con PO SCH (09:43)
[2024-04-22] MEDS: THERAGRAN MULTIVITAMIN PO SCH (09:43)
[2024-04-22] MEDS: hydroDIURIL 25 MG PO SCH (09:43)
[2024-04-22] MEDS: Docusate Sodium 100 MG PO PRN (09:44)
[2024-04-22] MEDS: Ocuvite Tablet PO SCH (09:44)
[2024-04-22] MEDS: Ecotrin 325 MG PO SCH (09:44)
[2024-04-22] MEDS: NORCO 5/325 MG PO PRN (09:44)
[2024-04-22] MEDS: VITA-BEE WITH C PO SCH (09:45)
[2024-04-22] MEDS: Miralax Powder 17GM PACKET PO PRN (12:07)
[2024-04-24] MEDS: MILK OF MAGNESIA 30 ML PO PRN (00:03)
[2024-04-24] MEDS: TYLENOL 325 MG PO PRN (00:03)
[2024-04-24] MEDS ORDERED: Tums EX 750 MG PO PRN (11:20)
[2024-04-25 04:51] LABS: Hematocrit 34.5 % (34.1-44.9); Hemoglobin 11.6 g/dL (11.2-15.7); Mean Cell Volume 95.8 fL (79.4-94.8); Mean Corpuscular Hemoglobin 32.2 pg (25.6-32.2); Mean Corpuscular Hgb Concent. 33.6 g/dL (32.2-35.5); Mean Platelet Volume 9.2 fL (9.4-12.3); Platelet Count 283 x10^3/uL (182-369); White Blood Count 7.8 x10^3/uL (3.98-10.04)
[2024-04-25 05:09] LABS: ALBUMIN 3.5 g/dL (3.5-5.0); ANION GAP 11.2 MEQ/L (5-15); BILIRUBIN,TOTAL 0.9 mg/dL (0.2-1.3); Calcium 8.9 mg/dL (8.4-10.2); Creatinine 1 0.72 mg/dL (0.52-1.04); EST GLOMERULAR FILTRATION RATE 80.9 ML/MIN; Potassium 3.8 mmol/L (3.5-5.1); Total Protein 6.3 g/dL (6.3-8.2)
--- NOTE | 2024-04-25 07:23 | PCM.NOTE ---
Date and Time: 04/25/24720 Subjective Assessment: is a 88 year old female PMHX of HLD and HTN patient of Dr. Lei (Ortho) with an MRI confirmed stress fracture left femur head/neck with small effusion s/p left hemiarthroplasty performed 04/18/24. Patient to transition to swing bed per request of Ortho. Patient is doing well POD#4. Pain level is at 3/10 on interview. Is having some constipation. Labs and vitals stable. Patient is independent at home. She does have a tri-level home and is currently requiring assistance with ADLs. She is being admitted to swing bed for short- term rehab. - Review of Systems Constitutional: No Fever, No Chills Eyes: No Symptoms Ears, Nose, & Throat: No Symptoms Respiratory: No Cough, No Short Of Breath Cardiac: No Chest Pain, No Edema, No Syncope Abdominal/Gastrointestinal: No Abdominal Pain, No Nausea, No Vomiting, No Diarrhea Genitourinary Symptoms: No Dysuria Musculoskeletal: No Back Pain, No Neck Pain Skin: No Rash Neurological: No Dizziness, No Focal Weakness, No Sensory Changes Psychological: No Symptoms Endocrine: No Symptoms Hematologic/Lymphatic: No Symptoms Immunological/Allergic: No Symptoms Objective Exam General Appearance: no apparent distress, alert Neurologic Exam: alert, oriented x 3, cooperative, normal mood/affect, nml cerebellar function, sensation nml, No motor deficits Skin Exam: normal color, warm, dry Eye Exam: PERRL, EOMI, eyes nml inspection Ears, Nose, Throat Exam: normal ENT inspection, pharynx normal, moist mucous membranes Neck Exam: normal inspection, non-tender, supple, full range of motion Respiratory Exam: normal breath sounds, lungs clear, No respiratory distress Cardiovascular Exam: regular rate/rhythm, normal heart sounds Gastrointestinal/Abdomen Exam: soft, No tenderness, No mass Extremity Exam: normal inspection, normal range of motion Back Exam: normal inspection, normal range of motion, No CVA tenderness, No vertebral tenderness Pelvic Exam: deferred Rectal Exam: deferred Objective Data Vital Signs: Vital Signs - 24 hr Temp Pulse Resp BP Pulse Ox 04/25/24 07:02 98.3 F 62 16 133/67 92 L 04/24/24 20:00 97.6 F 63 18 114/70 92 L 04/24/24 08:00 97.9 F 63 15 138/63 95 Pain Assessment - Last Documented Pain Intensity 3 Pain Scale Used 0-10 Pain Scale Intake and Output: Intake & Output 04/22/24 04/23/24 04/24/24 04/25/24 11:59 11:59 11:59 11:59 Intake Total 120 420 120 420 Output Total 650 Balance -530 420 120 420 Weight 76.4 kg 76.4 kg Lab Results: Lab Results-Last 24 Hours 04/25/24 04/25/24 Range/Units 04:40 04:40 WBC 7.8 (3.98-10.04) x10^3/uL RBC 3.60 L (3.93-5.22) x10^6/uL Hgb 11.6 (11.2-15.7) g/dL Hct 34.5 (34.1-44.9) % MCV 95.8 H (79.4-94.8) fL MCH 32.2 (25.6-32.2) pg MCHC 33.6 (32.2-35.5) g/dL RDW 14.0 (11.7-14.4) % Plt Count 283 (182-369) x10^3/uL MPV 9.2 L (9.4-12.3) fL Sodium 136 (135-145) mmol/L Potassium 3.8 (3.5-5.1) mmol/L Chloride 103 (98-107) mmol/L Carbon Dioxide 26 (22-30) mmol/L Anion Gap 11.2 (5-15) MEQ/L BUN 21 H (7-17) mg/dL Creatinine 0.72 (0.52-1.04) mg/dL Estimated GFR 80.9 ML/MIN Glucose 111 H (74-106) mg/dL Calcium 8.9 (8.4-10.2) mg/dL Total Bilirubin 0.90 (0.2-1.3) mg/dL AST 40 H (14-36) U/L ALT 38 H (0-35) U/L Alkaline Phosphatase 66 (38-126) U/L Serum Total Protein 6.3 (6.3-8.2) g/dL Albumin 3.5 (3.5-5.0) g/dL Multi-Disciplinary Progress Notes: Multi-Disciplinary Progress Notes 04/24/24 15:43 Occupational Therapy Note by Avel(L#[id number])Jaquelin Occupational Therapy Treatment Session [id number] Patient seated in recliner with BLE elevated and family present to visit. Patient agreeable to OT treatment session this date and she and daughter had home setup photos of stairs and bathroom to show and discuss with OTR. She has a tub side grab bar, two grab bars within the shower, a long-handled shower head, container washer for shampoo and conditioner, and tub transfer bench and a grab bar is installed within reach at raised-height toilet. Trang then participated in BUE strengthening ther ex's 2 sets x 10 reps each of chest press, rows, overhead press, bicep curls, wrist curls, and shoulder flexion with 1# dumbbells. Trang tolerated today's treatment session well and stated she felt she'd worked her arms after. She was seated in recliner with BLE elevated and bedside table and call light within reach. Family members present at session end. Will continue to see patient weekdaily through duration of stay to promote improved I/ADL independence and safety and AE/AD/DME education. Initialized on 04/24/24 15:43 - END OF NOTE 04/24/24 10:48 Case Management Note by Donna Owen S/W PATIENT- SHE CONTINUES TO PLAN TO MAXIMIZE HER TIME HERE IN SWINGBED WHILE HEALING. WORKING WITH PT TO HOPEFULLY RETURN HOME AT TIME OF DC. [facility] Initialized on 04/24/24 10:48 - END OF NOTE Assessment/Plan (1) Status post left hip replacement Current Visit: No Status: Acute Assessment & Plan: -see stress fracture above Code(s): Z96.642 - PRESENCE OF LEFT ARTIFICIAL HIP JOINT (2) HLD (hyperlipidemia) Current Visit: No Status: Chronic Assessment & Plan: -continue statin Code(s): E78.5 - HYPERLIPIDEMIA, UNSPECIFIED (3) HTN (hypertension) Current Visit: No Status: Chronic Assessment & Plan: -Stable, continue to Monitor - continue home meds Code(s): I10 - ESSENTIAL (PRIMARY) HYPERTENSION (4) Stress fracture of femur Current Visit: No Status: Resolved Assessment & Plan: MRI reviewed: Impression: Stress fracture left femur head/neck with small effusion. Additional associated superior acetabulum bone bruising/edema. -left hemiarthroplasty performed 04/18/24 POD#4 -Dressing changes per ORTHO -Pain control -PT Code(s): M84.353A - STRESS FRACTURE, UNSPECIFIED FEMUR, INIT ENCNTR FOR FRACTURE
--- NOTE | 2024-04-25 10:58 | PCM.NOTE ---
Date and Time: 04/25/24 1045 Subjective Assessment: 04/25/24 Pt resting in chair and working with PT. Per PT she is doing better daily. Case management to discuss OP plan and pt concerns with possible HHC. Pt would like to d/c by Tuesday if able as her daughter has to leave by tomorrow. She has plans for her son to move in with her and help. However, she reports he has epilepsy and is a bit concerned about this. Discussed pt case with ortho and he is ok with aquacell dressing change today. He also explained when PT feels pt is ready to d/c then ok to do so. She denies any further concerns at this time. Pain is well controlled. - Review of Systems Constitutional: No Fever, No Chills Eyes: No Symptoms Ears, Nose, & Throat: No Symptoms Respiratory: No Cough, No Short Of Breath Cardiac: No Chest Pain, No Edema, No Syncope Abdominal/Gastrointestinal: No Abdominal Pain, No Nausea, No Vomiting, No Diarrhea Genitourinary Symptoms: No Dysuria Musculoskeletal: Joint Pain, No Back Pain, No Neck Pain Skin: No Rash Neurological: No Dizziness, No Focal Weakness, No Sensory Changes Psychological: No Symptoms Endocrine: No Symptoms Hematologic/Lymphatic: No Symptoms Immunological/Allergic: No Symptoms Objective Exam General Appearance: no apparent distress, alert Neurologic Exam: alert, oriented x 3, cooperative, normal mood/affect, nml cerebellar function, sensation nml, No motor deficits Skin Exam: normal color, warm, dry Eye Exam: PERRL, EOMI, eyes nml inspection Ears, Nose, Throat Exam: normal ENT inspection, pharynx normal, moist mucous membranes Neck Exam: normal inspection, non-tender, supple, full range of motion Respiratory Exam: normal breath sounds, lungs clear, No respiratory distress Cardiovascular Exam: regular rate/rhythm, normal heart sounds Gastrointestinal/Abdomen Exam: soft, No tenderness, No mass Extremity Exam: normal inspection, normal range of motion Back Exam: normal inspection, normal range of motion, No CVA tenderness, No vertebral tenderness Pelvic Exam: deferred Rectal Exam: deferred Objective Data Vital Signs: Vital Signs - 24 hr Temp Pulse Resp BP Pulse Ox 04/25/24 07:02 98.3 F 62 16 133/67 92 L 04/24/24 20:00 97.6 F 63 18 114/70 92 L Pain Assessment - Last Documented Pain Intensity 8 Pain Scale Used 0-10 Pain Scale Intake and Output: Intake & Output 04/22/24 04/23/24 04/24/24 04/25/24 11:59 11:59 11:59 11:59 Intake Total 120 420 120 420 Output Total 650 Balance -530 420 120 420 Weight 76.4 kg 76.4 kg Lab Results: Lab Results-Last 24 Hours 04/25/24 04/25/24 Range/Units 04:40 04:40 WBC 7.8 (3.98-10.04) x10^3/uL RBC 3.60 L (3.93-5.22) x10^6/uL Hgb 11.6 (11.2-15.7) g/dL Hct 34.5 (34.1-44.9) % MCV 95.8 H (79.4-94.8) fL MCH 32.2 (25.6-32.2) pg MCHC 33.6 (32.2-35.5) g/dL RDW 14.0 (11.7-14.4) % Plt Count 283 (182-369) x10^3/uL MPV 9.2 L (9.4-12.3) fL Sodium 136 (135-145) mmol/L Potassium 3.8 (3.5-5.1) mmol/L Chloride 103 (98-107) mmol/L Carbon Dioxide 26 (22-30) mmol/L Anion Gap 11.2 (5-15) MEQ/L BUN 21 H (7-17) mg/dL Creatinine 0.72 (0.52-1.04) mg/dL Estimated GFR 80.9 ML/MIN Glucose 111 H (74-106) mg/dL Calcium 8.9 (8.4-10.2) mg/dL Total Bilirubin 0.90 (0.2-1.3) mg/dL AST 40 H (14-36) U/L ALT 38 H (0-35) U/L Alkaline Phosphatase 66 (38-126) U/L Serum Total Protein 6.3 (6.3-8.2) g/dL Albumin 3.5 (3.5-5.0) g/dL Multi-Disciplinary Progress Notes: Multi-Disciplinary Progress Notes 04/24/24 15:43 Occupational Therapy Note by Avel(Priya#[id number] Bingham Occupational Therapy Treatment Session [id number] Patient seated in recliner with BLE elevated and family present to visit. Patient agreeable to OT treatment session this date and she and daughter had home setup photos of stairs and bathroom to show and discuss with OTR. She has a tub side grab bar, two grab bars within the shower, a long-handled shower head, [employer] for shampoo and conditioner, and tub transfer bench and a grab bar is installed within reach at raised-height toilet. Trang then participated in BUE strengthening ther ex's 2 sets x 10 reps each of chest press, rows, overhead press, bicep curls, wrist curls, and shoulder flexion with 1# dumbbells. Trang tolerated today's treatment session well and stated she felt she'd worked her arms after. She was seated in recliner with BLE elevated and bedside table and call light within reach. Family members present at session end. Will continue to see patient weekdaily through duration of stay to promote improved I/ADL independence and safety and AE/AD/DME education. Initialized on 04/24/24 15:43 - END OF NOTE 04/24/24 10:48 Case Management Note by Donna Owen S/W PATIENT- SHE CONTINUES TO PLAN TO MAXIMIZE HER TIME HERE IN SWINGBED WHILE HEALING. WORKING WITH PT TO HOPEFULLY RETURN HOME AT TIME OF DC. [facility] Initialized on 04/24/24 10:48 - END OF NOTE Assessment/Plan (1) Stress fracture of femur Current Visit: No Status: Acute Assessment & Plan: -MRI reviewed: Impression: Stress fracture left femur head/neck with small effusion. Additional associated superior acetabulum bone bruising/edema. -left hemiarthroplasty performed 04/18/24 POD#4 -Dressing changes per ORTHO today -Pain control -PT - IS Code(s): M84.353A - STRESS FRACTURE, UNSPECIFIED FEMUR, INIT ENCNTR FOR FRACTURE (2) Status post left hip replacement Current Visit: No Status: Acute Assessment & Plan: - ok to change aquacell dressing today per ortho - IS - PT daily - pain control Code(s): Z96.642 - PRESENCE OF LEFT ARTIFICIAL HIP JOINT (3) HLD (hyperlipidemia) Current Visit: No Status: Chronic Assessment & Plan: -continue statin Code(s): E78.5 - HYPERLIPIDEMIA, UNSPECIFIED (4) HTN (hypertension) Current Visit: No Status: Chronic Assessment & Plan: -Stable, continue to Monitor - continue home meds Next of KIN: Jacque Ortega [phone] D/C plan: Tuesday? Code(s): I10 - ESSENTIAL (PRIMARY) HYPERTENSION
[2024-04-26 08:37] VITALS: RESP 18
[2024-04-27 07:37] VITALS: BP 122/60; PULSE 58; TEMP 97.5; O2SAT 94
--- NOTE | 2024-04-27 09:14 | PCM.DS ---
Discharge Summary Date of Admission: 04/21/24 11:16 Date of Discharge: 04/27/24 Admitting Physician: RIA LOVE MD Primary Care Provider: DERIC CANDELARIA Allergies Allergies daprodustat Allergy (Mild, Verified 04/21/24 11:34) [facility] Summary - Hospital Course Hospital Course: 04/25/24 Pt resting in chair and working with PT. Per PT she is doing better daily. Case management to discuss OP plan and pt concerns with possible HHC. Pt would like to d/c by Tuesday if able as her daughter has to leave by tomorrow. She has plans for her son to move in with her and help. However, she reports he has epilepsy and is a bit concerned about this. Discussed pt case with ortho and he is ok with aquacell dressing change today. He also explained when PT feels pt is ready to d/c then ok to do so. She denies any further concerns at this time. Pain is well controlled. 04/27 Pt has been in a swing bed for a week now. She is ready to d/c per PT and ok by ortho. She is doing well per PT. HHC and PT set up OP. She has not been taking pain meds and will continue Tylenol for pain PRN. She has a walker in her room that is hers to take home. She will continue ASA OP. Pain well controlled. She denies any further concerns or needs at this time. - Vitals & Intake/Output Vital Signs: Vital Signs Temperature 97.5 F 04/27/24 07:36 Pulse Rate 58 L 04/27/24 07:36 Respiratory Rate 18 04/27/24 07:36 Blood Pressure 122/60 04/27/24 07:36 O2 Sat by Pulse Oximetry 94 L 04/27/24 07:36 Intake & Output: Intake & Output 04/24/24 04/25/24 04/26/24 04/27/24 11:59 11:59 11:59 11:59 Intake Total 120 420 860 640 Balance 120 420 860 640 Weight 76.4 kg 72.9 kg - Lab Result Diagrams: 04/25/24 04:40 04/25/24 04:40 - Procedures and Test Procedures and Tests throughout Hospitalization: Therapy Orders & Screens 04/21/24 11:26 PT Eval & Treat ( Order) ONCE Reason for Eval:: SWING BED Diagnosis: FRACTURE LEFT HIP, S/P LEFT HIP ATHROPLASTY Incentive Spirometry Q1H Comment: Diagnosis: STRESS FRACTURE LEFT FEMUR HEAD/NECK WITH SMALL EFFUSION OT Eval and Treat (MD Order) ONCE Comment: Physician Instructions: Reason For Exam: Diagnosis: FRACTURE LEFT HIP, S/P LEFT HIP ATHROPLASTY 04/23/24 05:50 PT Clarification Order ROUTINE Comment: Physician Instructions: Reason For Exam: PT Clarification: P.T. TO RX 5X/WK UNTIL D/C TO ADDRESS FUNCTIONAL MOBILITY ANF GAIT TRAINING, THER EX, BALANCE ACTIVITIES AND PT. ED. RE: HEP, SAFETY AWARENESS, AND POSTERIOR TOTAL HIP PRECAUTIONS TO MAXIMIZDE FUNCTIONAL INDEPENDENCE FOR SAFE RETURN HOME. 04/23/24 10:03 OT Clarification Order ROUTINE Comment: Physician Instructions: Reason For Exam: OT Clarification: 5X/WEEK TO ADDRESS ADLS, FUNCTIONAL STRENGTH, AND FUNCTIONAL TRANSFERS TO FACILITATE SAFE D/C HOME. Discharge Exam General Appearance: no apparent distress, alert Neurologic Exam: alert, oriented x 3, cooperative, normal mood/affect, nml cerebellar function, sensation nml, No motor deficits Eye Exam: PERRL, EOMI, eyes nml inspection Ears, Nose, Throat Exam: normal ENT inspection, pharynx normal, moist mucous membranes Neck Exam: normal inspection, non-tender, supple, full range of motion Respiratory Exam: normal breath sounds, lungs clear, No respiratory distress Cardiovascular Exam: regular rate/rhythm, normal heart sounds Gastrointestinal/Abdomen Exam: soft, No tenderness, No mass Pelvic Exam: deferred Rectal Exam: deferred Back Exam: normal inspection, normal range of motion, No CVA tenderness, No vertebral tenderness Extremity Exam: normal inspection, normal range of motion Skin Exam: normal color, warm, dry Final Diagnosis/Problem List - Final Discharge Diagnosis/Problem (1) Stress fracture of femur Current Visit: No Status: Acute Code(s): M84.353A - STRESS FRACTURE, UNSPECIFIED FEMUR, INIT ENCNTR FOR FRACTURE (2) Status post left hip replacement Current Visit: No Status: Acute Code(s): Z96.642 - PRESENCE OF LEFT ARTIFICIAL HIP JOINT (3) HLD (hyperlipidemia) Current Visit: No Status: Chronic Code(s): E78.5 - HYPERLIPIDEMIA, UNSPECIFIED (4) HTN (hypertension) Current Visit: No Status: Chronic Assessment & Plan: (1) Stress fracture of femur Current Visit: No Status: Acute Assessment & Plan: -MRI reviewed: Impression: Stress fracture left femur head/neck with small effusion. Additional associated superior acetabulum bone bruising/edema. - left hemiarthroplasty performed 04/18/24 POD#4 - Dressing changes per ORTHO today - Pain control - PT - IS / - F/U OP with HHC, PT, and Ortho as scheduled - Tylenol for pain - Cont. ASA Code(s): M84.353A - STRESS FRACTURE, UNSPECIFIED FEMUR, INIT ENCNTR FOR FRACTURE (2) Status post left hip replacement Current Visit: No Status: Acute Assessment & Plan: - ok to change aquacell dressing today per ortho - IS - PT daily - pain control 04/27 - dressing changes OP per ortho recs Code(s): Z96.642 - PRESENCE OF LEFT ARTIFICIAL HIP JOINT (3) HLD (hyperlipidemia) Current Visit: No Status: Chronic Assessment & Plan: -continue statin Code(s): E78.5 - HYPERLIPIDEMIA, UNSPECIFIED (4) HTN (hypertension) Current Visit: No Status: Chronic Assessment & Plan: -Stable, continue to Monitor - continue home meds Code(s): I10 - ESSENTIAL (PRIMARY) HYPERTENSION - Discharge Discharge Date: 04/27/24 Disposition: HOME HEALTH SERVICE Condition: Stable Prescriptions: Continue Carvedilol 3.125 mg [Coreg 3.125 MG] 3.125 mg PO BID Vitamin B Complex [B Complex] 1 tab PO DAILY Vit A/Vit C/Vit E/Zinc/Copper [Preservision Areds Tablet] 1 tablet PO DAILY Multivit-Min/Iron/Folic/Lutein [Centrum Silver Women Tablet] 1 each PO DAILY Sertraline HCl 50 mg [Zoloft 50 mg Tablet] 25 mg PO HS Atorvastatin Calcium [Lipitor] 10 mg PO HS Potassium Chloride Tab* [Klor Con] 10 meq PO DAILY Hydrochlorothiazide 25 mg [hydroDIURIL 25 MG] 12.5 mg PO DAILY Enalapril Maleate 10 mg [Vasotec 10 MG] 10 mg PO BID Diclofenac Sodium 2 gm TP QID PRN PRN PRN Reason: Pain Docusate Sodium 100 mg [Docusate Sodium 100 MG] 100 mg PO BIDPRN PRN cap PRN Reason: Constipation Aspirin EC 325 mg [Ecotrin 325 MG] 325 mg PO QAM tablet Acetaminophen 325 mg [Tylenol 325 mg] 650 mg PO Q4H PRN PRN tablet PRN Reason: Pain, Fever, Headache Ondansetron HCl 4 mg/2 ml [Zofran 4 MG/2 ML VIAL] 4 mg IV Q6H PRN PRN PRN Reason: Nausea/Vomiting Instructions: Hip fracture in adults - Discharge instructions Additional Instructions: YOU MAY REMOVE YOUR DRESSING ON SATURDAY 04/28 AND LEAVE INCISION OPEN TO AIR [facility] HAS BEEN SET UP. THEY WILL CALL YOU TO ARRANGE A TIME TO COME SEE YOU. THEIR PHONE NUMBER IS [phone] IF YOU NEED ANYTHING BEFORE THEIR FIRST VISIT FOLLOW HIP PRECAUTION INSTRUCTIONS GIVEN TO YOU Follow up with: DERIC CANDELARIA NP [Primary Care Provider] - 05/07/24 10:30 am EDUARDO RICCI MD [ACTIVE STAFF] - 05/14/24 1:30 pm Forms: Discharge Instructions
--- NOTE | 2024-04-27 11:13 | PCM.DCORD ---
- Discharge Discharge Date: 04/27/24 Disposition: HOME HEALTH SERVICE Condition: Stable Prescriptions: Continue Carvedilol 3.125 mg [Coreg 3.125 MG] 3.125 mg PO BID Vitamin B Complex [B Complex] 1 tab PO DAILY Vit A/Vit C/Vit E/Zinc/Copper [Preservision Areds Tablet] 1 tablet PO DAILY Multivit-Min/Iron/Folic/Lutein [Centrum Silver Women Tablet] 1 each PO DAILY Sertraline HCl 50 mg [Zoloft 50 mg Tablet] 25 mg PO HS Atorvastatin Calcium [Lipitor] 10 mg PO HS Potassium Chloride Tab* [Klor Con] 10 meq PO DAILY Hydrochlorothiazide 25 mg [hydroDIURIL 25 MG] 12.5 mg PO DAILY Enalapril Maleate 10 mg [Vasotec 10 MG] 10 mg PO BID Diclofenac Sodium 2 gm TP QID PRN PRN PRN Reason: Pain Docusate Sodium 100 mg [Docusate Sodium 100 MG] 100 mg PO BIDPRN PRN cap PRN Reason: Constipation Aspirin EC 325 mg [Ecotrin 325 MG] 325 mg PO QAM tablet Acetaminophen 325 mg [Tylenol 325 mg] 650 mg PO Q4H PRN PRN tablet PRN Reason: Pain, Fever, Headache Discontinued Ondansetron HCl 4 mg/2 ml [Zofran 4 MG/2 ML VIAL] 4 mg IV Q6H PRN PRN PRN Reason: Nausea/Vomiting Instructions: Hip fracture in adults - Discharge instructions Additional Instructions: YOU MAY REMOVE YOUR DRESSING ON SATURDAY 04/28 AND LEAVE INCISION OPEN TO AIR [facility] HAS BEEN SET UP. THEY WILL CALL YOU TO ARRANGE A TIME TO COME SEE YOU. THEIR PHONE NUMBER IS [phone] IF YOU NEED ANYTHING BEFORE THEIR FIRST VISIT FOLLOW HIP PRECAUTION INSTRUCTIONS GIVEN TO YOU Follow up with: DERIC CANDELARIA NP [Primary Care Provider] - 05/07/24 10:30 am EDUARDO RICCI MD [ACTIVE STAFF] - 05/14/24 1:30 pm Forms: Discharge Instructions
== END 2024-04-27 13:17 | disposition home health service (06) | DRG 544 ==
LOC: MED SURG 11:16
PROVIDERS: ADMIT Internal Medicine; ATTEND Internal Medicine
DX: M84.353A Stress fracture, unspecified femur, initial encounter for fracture (principal); Z96.642 Presence of left artificial hip joint; E78.5 Hyperlipidemia, unspecified; I10 Essential (primary) hypertension; K59.00 Constipation, unspecified; Z79.899 Other long term (current) drug therapy; Z85.828 Personal history of other malignant neoplasm of skin; Z85.54 Personal history of malignant neoplasm of ureter
CPT/HCPCS: 36415; 80053; 85025; 85027; 97110; 97530; Q3014; A9270-GY

== ENCOUNTER 2024-10-31 14:33 | Emergency (ER) | payer MEDICARE, OTHER ==
[2024-10-31 18:24] VITALS: TEMP 97.3
[2024-10-31 19:44] VITALS: BP 187/79; PULSE 53; RESP 19; O2SAT 98
--- NOTE | 2024-10-31 19:56 | ERPHSYRPT ---
- History of Present Illness Time Seen by Provider: 10/31/24 15:10 Exam Limitations: no limitations Patient Subjective Stated Complaint: Pt staets "I tripped over an upraised concrete and fell on my face and hand." Triage Nursing Assessment: Pt presented alert and orineted X 3, skin pwd. pt has bruising and swelling noted to upper lip, chin and lower lip, front right incisor pushed up into gum, 2nd right incisor is crooked from being hit with small chip out of it. pt has skin tear noted to fourth and fifth knuckles on right hand. Physician History: 89-year-old female presents to emergency department for evaluation of injury sustained after mechanical fall. Patient states she was in [facility] walking outdoors when she tripped on when she calls and up raised concrete and fell forward striking her face on the concrete. Patient braced her fall with her outstretched arm. Injury occurred prior to arrival. Patient rates her pain 1 out of 10 and declined pain medication. Patient states the fall was mechanical and not associated with any neuro cardiovascular symptomology. No associated chest pain or shortness of breath. No nausea vomiting or diaphoresis. No numbness tingling or weakness. I evaluated patient at the beginning of my shift. Patient had already been here waiting to be seen for approximately 5 hours. Patient stated that she just wanted to go home. Patient reports she is tired of waiting and just wants her injuries dressed and is requesting discharge. Patient declined CT head and face. Patient declined x-rays and suture repair of lacerations. There is an abrasion to the upper lip along with swelling and bruising. Patient has an abrasion to her chin. The right incisor is pushed up into her gum. Patient reports she already has an appointment scheduled with a dentist tomorrow. Patient has skin tears to the fourth and fifth knuckles of her right hand. Patient states she was ambulatory after the fall. Patient voices no other complaints or concerns at this time. Portions of this note were created with voice recognition technology. There may be grammatical, spelling, punctuation or sound alike errors Timing/Duration: today Severity: moderate Modifying Factors: Improves With: nothing Associated Symptoms: denies symptoms Allergies/Adverse Reactions: daprodustat Allergy (Mild, Verified 04/21/24 11:34) Hives Home Medications: Carvedilol 3.125 mg [Coreg 3.125 MG] 3.125 mg PO BID 09/23/23 [History] Multivit-Min/Iron/Folic/Lutein [Centrum Silver Women Tablet] 1 each PO DAILY 09/23/23 [History] Vit A/Vit C/Vit E/Zinc/Copper [Preservision Areds Tablet] 1 tablet PO DAILY 09/23/23 [History] Vitamin B Complex [B Complex] 1 tab PO DAILY 09/23/23 [History] Atorvastatin Calcium [Lipitor] 10 mg PO HS 04/17/24 [History] Enalapril Maleate 10 mg [Vasotec 10 MG] 10 mg PO BID 04/17/24 [History] Hydrochlorothiazide 25 mg [hydroDIURIL 25 MG] 12.5 mg PO DAILY 04/17/24 [History] Potassium Chloride Tab* [Klor Con] 10 meq PO DAILY 04/17/24 [History] Sertraline HCl 50 mg [Zoloft 50 mg Tablet] 25 mg PO HS 04/17/24 [History] Hx Tetanus, Diphtheria Vaccination/Date Given: No Hx Influenza Vaccination/Date Given: Yes Hx Pneumococcal Vaccination/Date Given: Yes Immunizations Up to Date: No Travel Risk - International Travel Have you traveled outside of the country in past 3 weeks: No - Emerging Infectious Disease Are you exhibiting symptoms associated with any current EIDs: No - Review of Systems Constitutional: No Symptoms (Rossiter), No Fever, No Chills Eyes: No Symptoms Ears, Nose, & Throat: No Symptoms Respiratory: No Symptoms, No Cough, No Dyspnea Cardiac: No Symptoms, No Chest Pain, No Edema, No Syncope Abdominal/Gastrointestinal: No Symptoms, No Abdominal Pain, No Nausea, No Vomiting, No Diarrhea Genitourinary Symptoms: No Symptoms, No Dysuria Musculoskeletal: No Symptoms, No Back Pain, No Neck Pain Skin: No Symptoms, No Rash Neurological: No Symptoms, No Dizziness, No Focal Weakness, No Sensory Changes Psychological: No Symptoms Endocrine: No Symptoms Hematologic/Lymphatic: No Symptoms Immunological/Allergic: No Symptoms All Other Systems: Reviewed and Negative - Past Medical History Pertinent Past Medical History: Yes Neurological History: No Pertinent History ENT History: Cataracts Cardiac History: High Cholesterol, Hypertension Respiratory History: No Pertinent History Endocrine Medical History: No Pertinent History Musculoskeletal History: Osteoarthritis GI Medical History: No Pertinent History History: Other Psycho-Social History: Anxiety, Depression Female Reproductive Disorders: No Pertinent History Other Medical History: PMHX: FX RIGHT FIBULA 09/23/23 (NO SURGERY) - Past Surgical History Past Surgical History: Yes Neuro Surgical History: No Pertinent History Cardiac: No Pertinent History Respiratory: No Pertinent History Gastrointestinal: No Pertinent History Genitourinary: Other Musculoskeletal: No Pertinent History Female Surgical History: Hysterectomy, Other Other Surgical History: CYSTOCELE REPAIR, RECTOCELE REPAIR, LEFT CARPAL TUNNEL REPAIR, PTOSIS OF EYELID REPAIR, MOHS FOR BASAL CELL, PARTIAL VULVECTOMY Significant Family History: no pertinent family hx - Social History Smoking Status: Never smoker Exposure to second hand smoke: No Drug Use: none Patient Lives Alone: Yes - Social Determinants of Health Will the patient participate in the screening: Yes Do you worry about a steady place to live?: No Do you have any problems with any of the following?: No known problems In the past 12 months,have you had to go without utilities?: No Transportation Issues: No Has anyone in your support network made you feel unsafe?: No Have you or anyone in your house had to go without enough: No - Nursing Vital Signs Nursing Vital Signs: Initial Vital Signs Temperature 97.3 F 10/31/24 18:18 Pulse Rate 59 L 10/31/24 18:18 Respiratory Rate 18 10/31/24 18:18 Blood Pressure 194/81 10/31/24 18:18 O2 Sat by Pulse Oximetry 96 10/31/24 18:18 Pain Scale Pain Intensity 1 - Physical Exam General Appearance: no apparent distress, alert Eye Exam: PERRL/EOMI, eyes nml inspection Ears, Nose, Throat Exam: normal ENT inspection, TMs normal, pharynx normal, moist mucous membranes, other (There is a superficial laceration to the mucosal surface of the lower lip that may benefit from repair however patient declined repair. Patient's right incisor was pushed upward. No active bleeding. The maxilla appears to be stable.) Neck Exam: normal inspection, non-tender, supple, full range of motion, other (No neck pain. Patient denies midline tenderness) Respiratory Exam: normal breath sounds, lungs clear, airway intact, No respiratory distress Cardiovascular Exam: regular rate/rhythm, normal heart sounds, normal peripheral pulses Gastrointestinal/Abdomen Exam: soft, normal bowel sounds, No tenderness, No mass Back Exam: normal inspection, normal range of motion, No CVA tenderness, No vertebral tenderness Extremity Exam: normal inspection, normal range of motion, pelvis stable, other (Superficial skin tears at the right fourth and fifth knuckle. Abrasions measure approximately 1 x 1 cm the involved extremities neurovascular intact distally compartments are soft cap refill less than 2 seconds. A kidney) Neurologic Exam: alert, oriented x 3, cooperative, normal mood/affect, sensation nml, No motor deficits Skin Exam: normal color, warm, dry, No rash Lymphatic Exam: No adenopathy SpO2 Interpretation: normal SpO2: 98 O2 Delivery: Room Air - Course Nursing assessment & vital signs reviewed: Yes - Progress Progress: improved Progress Note: 89-year-old female status post fall. Patient refusing workup. Patient states that she has been here for over 5 hours and wants to go home. Patient requesting dressings to be applied to her skin tears. She declined imaging study and suture repair of her mucosal surface lip laceration. Patient's neurologic exam is within normal limits. No focal or lateralizing symptoms. Per patient's request she will be discharged AGAINST MEDICAL ADVICE after addressing her skin tears. Portions of this note were created with voice recognition technology. There may be grammatical, spelling, punctuation or sound alike errors Patient is of sound mind. Patient is appropriate to make informed and independent medical decisions. Patient understands that leaving AGAINST MEDICAL ADVICE can result in delayed diagnosis, increased risk of morbidity, mortality, short and long-term disability including . In spite of these risks, patient has decided to leave AGAINST MEDICAL ADVICE. Patient understands that she may return to our ED at any point if she reconsiders. Patient agrees to follow-up with his or her primary care doctor within 48 hours for reevaluation. Patient voices no other complaints or concerns at this time. We will release patient AGAINST MEDICAL ADVICE per their request. Complexity of problem addressed is moderate acute complicated. No critical care time. Complex of data reviewed and analyzed is none. No specialized testing ordered. Patient declined all specialized testing. Diagnosis made based on history and physical exam. Risk of complication and risk of morbidity/mortality of patient management is low. Vital stable. Time spent to discharge patient is approximately 20 minutes. Plan of care established for shared decision making. No social determinants of health present to impede follow-up. Portions of this note were created with voice recognition technology. There may be grammatical, spelling, punctuation or sound alike errors 10/31/24 19:59 Counseled pt/family regarding: diagnosis, need for follow-up - Departure Departure Disposition: Home Clinical Impression: Fall, Skin tear, Facial abrasion, Mucosal lip laceration Condition: Stable Critical Care Time: No Referrals: DERIC CANDELARIA USABILITY STRATEGIST [Primary Care Provider] - Follow up/PCP as directed Additional Instructions: Discharge/Care Plan [place] was seen on 10/31/24 in the Emergency Room. The patient was counseled regarding Diagnosis,Lab results, Imaging studies, need for follow up and when to return to the Emergency Room. Prescriptions given: Discharge Note I have spoken with the patient and/or caregivers. I have explained the patient's condition, diagnosis and treatment plan based on the information available to me at this time. I have answered the patient's and/or caregiver's questions and addressed any concerns. The patient and/or caregivers have as good understanding of the patient's diagnosis, condition and treatment plan as can be expected at this point. The vital signs have been stable. The patient's condition is stable and appropriate for discharge from the emergency department. The patient will pursue further outpatient evaluation with the primary care physician or other designated or consulting physician as outlined in the discharge instructions. The patient and/or caregivers are agreeable to this plan of care and follow-up instructions have been explained in detail. The patient and/or caregivers have received these instruction. The patient/and or caregivers are aware that any significant change in condition or worsening of symptoms should prompt an immediate return to this or the closest emergency department or call 911.
== END 2024-10-31 20:14 | disposition left against medical advice (07) ==
LOC: ED 14:33
DX: S01.511A Laceration without foreign body of lip, initial encounter (principal); S61.214A Laceration without foreign body of right ring finger without damage to nail, initial encounter; S61.216A Laceration without foreign body of right little finger without damage to nail, initial encounter; S00.81XA Abrasion of other part of head, initial encounter; W01.0XXA Fall on same level from slipping, tripping and stumbling without subsequent striking against object, initial encounter; Y93.01 Activity, walking, marching and hiking; E78.5 Hyperlipidemia, unspecified; I10 Essential (primary) hypertension; Z79.899 Other long term (current) drug therapy
CPT/HCPCS: 99281